=== PATIENT | female | born 1940 | race Caucasian/White ===

== ENCOUNTER → 2018-11-09 | Outpatient (CLI) | payer MEDICARE ==
[~2018-11-09] MED LIST: AC325T; ACHD5005 PO; ATN50T PO; ATR20T PO; CLCX200C; CTLP20T PO; GLUC750T8 PO; IBP800T PO; LEVO50TA63 PO; LVF500T; MULT1TAB63 PO
[2018-11-09 15:51] LABS: BILIRUBIN,URINE NEGATIVE (NEGATIVE); CLARITY,URINE CLEAR; COLOR,URINE PALE YELLOW; GLUCOSE, URINE (UA) NEGATIVE (NEGATIVE); KETONES,URINE NEGATIVE (NEGATIVE); NITRITE,URINE NEGATIVE (NEGATIVE); PROTEIN,URINE NEGATIVE (NEGATIVE); UROBILINOGEN,URINE 0.2 MG/DL (NORMAL)
[2018-11-09 15:52] LABS: LEUKOCYTE ESTERASE ,URINE NEGATIVE (NEGATIVE)
[2018-11-09 15:59] LABS: BACTERIA,URINE NEGATIVE /HPF; SQUAMOUS EPITHELIAL CELL,UR 0-2 /HPF; WBC,URINE 0-2 /HPF
== END ==
LOC: LAB FS 14:44
PROVIDERS: ATTEND Family Medicine
DX: R30.0 Dysuria (principal)
CPT/HCPCS: 81000

== ENCOUNTER → 2018-12-08 | Outpatient (CLI) | payer MEDICARE ==
[2018-12-08 11:34] LABS: HEMOGLOBIN 13.6 G/DL (11.5-16.0); WHITE BLOOD COUNT 5.6 10^3/uL (4.3-11.0)
[2018-12-08 11:35] LABS: MEAN PLATELET VOLUME 10.6 FL (7.4-10.4); RED CELL DISTRIBUTION WIDTH 13.2 % (10.0-14.5)
[2018-12-08 15:01] LABS: FREE T4 (FREE THYROXINE) 1.11 NG/DL (0.70-1.48)
== END ==
LOC: LAB FS 11:06
PROVIDERS: ATTEND Nurse Practitioner Family
DX: E03.9 Hypothyroidism, unspecified (principal); E78.2 Mixed hyperlipidemia; I10 Essential (primary) hypertension
CPT/HCPCS: 36415; 80061; 84439; 84443; 85027

== ENCOUNTER → 2019-02-13 | Outpatient (CLI) | payer MEDICARE ==
--- NOTE | 2019-02-13 18:35 | Diagnostic Imaging Report ---
INDICATION: Left ankle pain. AP, oblique, and lateral views of left ankle are obtained. FINDINGS: No fracture or acute bony abnormality is seen. There are chronic changes of the medial and lateral malleolus. There is some joint space narrowing especially medially. IMPRESSION: Chronic changes as above with no acute appearing abnormality of left ankle. Dictated by: Dictated on workstation # [id number]
== END ==
LOC: RAD 17:52
PROVIDERS: ATTEND Nurse Practitioner
DX: M25.872 Other specified joint disorders, left ankle and foot (principal); M25.572 Pain in left ankle and joints of left foot
CPT/HCPCS: 73610

== ENCOUNTER 2019-02-23 18:51 | Emergency (ER) | payer MEDICARE ==
[~2019-02-23] VITALS: Ht 152 cm; Wt 73.0 kg
[2019-02-23] MEDS ORDERED: meTOprolol TARTRATE 25 MG (LOPRESSOR) TABLET PO ONE (19:30)
--- NOTE | 2019-02-23 19:30 | ED Syncope ---
General Chief Complaint: Dizziness/Syncope Stated Complaint: FALL - HIT HEAD / DIZZY Nursing Triage Note: PT HAD AN EPISODE TODAY WHERE SHE GOT DIZZY AND FELL WHILE WORKING HITTING HER HEAD ON THE GROUND. RECENT UPPER RESPIRATORY ISSUES. CC OF NECK PAIN WHEN TURNING. Source of Information: Patient Exam Limitations: No Limitations History of Present Illness Date Seen by Provider: Feb 23, 2019 Time Seen by Provider: 18:55 Initial Comments Here with report of near syncopal episode. Apparently she was working in the garage and went back into the house. She had turned her head and felt dizzy and then fell sideways hitting her head on the cabinet. Denies loss of consciousness. She's had episodes similar to this in the past. Recently started on metoprolol for tachycardia but has not started that yet as she just got the medicine today. She was unsure if it was safe with her other medicines. Does complain of mild low neck pain but has no range of motion issues. Does have a small bump on the top of her head on the right. Recently has gone to the [place] on a trip and returned. She states that she's felt tired since but denies breathing problems. Does report some upper respiratory nasal congestion and left ear itching and she feels like she may have had a little bit of a cold or something. Denies nausea, vomiting, diarrhea, dysuria or weakness otherwise. Does have history of hypertension. Timing/Prior Episodes: Single Episode Today Symptoms Prior to Episode: Injury, Nausea, Other (dizziness) Precipitating Factors: Standing Loss of Consciousness: No Loss of Consciousness Current Symptoms: No Chest Pain, No Diaphoresis; Dizziness, Headache, Injury (mild head); No Nausea, No Weakness Allergies and Home Medications Allergies Coded Allergies: NKANo Known Allergies (Verified Allergy, Unknown, 09/22/06) Home Medications Atenolol 50 Mg Tablet, 1 TAB PO DAILY, (Reported) takes in evening Atorvastatin 20 Mg Tablet, 1 TAB PO DAILY, (Reported) takes hs Citalopram Hydrobromide 20 Mg Tablet, 1 TAB PO DAILY, (Reported) takes HS Glucosamine Hcl 750 Mg Tablet, 750 MG PO DAILY, (Reported) Hydrocodone Bit/Acetaminophen 1 Each Tablet, 1-2 EACH PO Q4H PRN, (Reported) Ibuprofen 800 Mg Tab, 800 MG PO TID PRN, (Reported) take with milk or meals Levothyroxine Sodium 50 Mcg Tablet, 1 TAB PO DAILY, (Reported) takes HS Multivitamins 1 Ea Tablet, 1 TAB PO DAILY, (Reported) takes HS Patient Home Medication List Home Medication List Reviewed: Yes Review of Systems Constitutional: see HPI; No chills, No fever EENTM: no symptoms reported Respiratory: no symptoms reported Cardiovascular: see HPI; No palpitations Gastrointestinal: No abdominal pain, No nausea, No vomiting Genitourinary: no symptoms reported Musculoskeletal: see HPI; No back pain Skin: no symptoms reported Psychiatric/Neurological: See HPI All Other Systems Reviewed Negative Unless Noted: Yes Past Fntfbuh-Ekkiel-Wxmcxb Hx Past Med/Social Hx: Reviewed Nursing Past Med/Soc Hx Patient Social History Alcohol Use: Denies Use Recreational Drug Use: No Smoking Status: Never a Smoker Recent Foreign Travel: No Contact w/Someone Who Travel: No Recent Infectious Disease Expo: No Immunizations Up To Date Date of Pneumonia Vaccine: Feb 08, 2011 Date of Influenza Vaccine: Feb 09, 2012 Past Medical History Surgeries: Yes Gallbladder, Hysterectomy, Orthopedic, Vascular Surgery Respiratory: No Cardiac: Yes High Cholesterol, Hypertension Neurological: No : No Reproductive Disorders: No (UTERINE POLYP REMOVED) Genitourinary: No Gastrointestinal: No Musculoskeletal: Yes Fractures Endocrine: Yes Hypothyroidsim Cancer: No Psychosocial: Yes Depression Family Medical History Reviewed Nursing Family Hx Cancer, Hypertension, Lung Disease Physical Exam Vital Signs Vital Signs - First Documented 02/23/19 19:04 Temp 37.3 Pulse 79 Resp 20 B/P (MAP) 203/110 (141) Pulse Ox 99 O2 Delivery Room Air Capillary Refill : Less Than 3 Seconds Height, Weight, BMI Height: '" Weight: lbs. oz. [id number]; 31.00 BMI Method: General Appearance: No Apparent Distress, WD/WN HEENT: PERRL/EOMI, TMs Normal, Pharynx Normal Neck: Non Tender, Supple Cardiovascular: Regular Rate, Rhythm, No Murmur Respiratory: Lungs Clear, Normal Breath Sounds Gastrointestinal: Non Tender, Soft Back: Normal Inspection, No CVA Tenderness, No Vertebral Tenderness Extremities: Normal Range of Motion, Non Tender, Pelvis Stable Neurologic/Psychiatric: Alert, Oriented x3, No Motor/Sensory Deficits, Normal Mood/Affect Cranial Nerves: Normal Hearing, Normal Speech, PERRL Coordination/Gait: Normal Gait Motor/Sensory: No Motor Deficit, No Sensory Deficit Skin: Normal Color, Warm/Dry Progress/Results/Core Measures Results/Orders Lab Results Laboratory Tests Test 02/23/19 19:20 Range/Units White Blood Count 5.5 4.3-11.0 10^3/uL Red Blood Count 4.21 L 4.35-5.85 10^6/uL Hemoglobin 12.5 11.5-16.0 G/DL Hematocrit 37 35-52 % Mean Corpuscular Volume 87 80-99 FL Mean Corpuscular Hemoglobin 30 25-34 PG Mean Corpuscular Hemoglobin Concent 34 32-36 G/DL Red Cell Distribution Width 13.5 10.0-14.5 % Platelet Count 224 130-400 10^3/uL Mean Platelet Volume 10.0 7.4-10.4 FL Neutrophils (%) (Auto) 69 42-75 % Lymphocytes (%) (Auto) 20 12-44 % Monocytes (%) (Auto) 7 0-12 % Eosinophils (%) (Auto) 3 0-10 % Basophils (%) (Auto) 1 0-10 % Neutrophils # (Auto) 3.8 1.8-7.8 X 10^3 Lymphocytes # (Auto) 1.1 1.0-4.0 X 10^3 Monocytes # (Auto) 0.4 0.0-1.0 X 10^3 Eosinophils # (Auto) 0.2 0.0-0.3 10^3/uL Basophils # (Auto) 0.0 0.0-0.1 10^3/uL Sodium Level 140 135-145 MMOL/L Potassium Level 3.8 3.6-5.0 MMOL/L Chloride Level 104 98-107 MMOL/L Carbon Dioxide Level 26 21-32 MMOL/L Anion Gap 10 5-14 MMOL/L Blood Urea Nitrogen 14 7-18 MG/DL Creatinine 0.79 0.60-1.30 MG/DL Estimat Glomerular Filtration Rate > 60 BUN/Creatinine Ratio 18 Glucose Level 99 70-105 MG/DL Calcium Level 9.4 8.5-10.1 MG/DL Corrected Calcium 9.1 8.5-10.1 MG/DL Magnesium Level 2.2 1.6-2.4 MG/DL Total Bilirubin 0.4 0.1-1.0 MG/DL Aspartate Amino Transf (AST/SGOT) 19 5-34 U/L Alanine Aminotransferase (ALT/SGPT) 19 0-55 U/L Alkaline Phosphatase 89 40-136 U/L Total Protein 6.9 6.4-8.2 GM/DL Albumin 4.4 3.2-4.5 GM/DL My Orders Orders - TERENCE KITCHEN MD Cbc With Automated Diff (02/23/19 19:16) Comprehensive Metabolic Panel (02/23/19 19:16) Magnesium (02/23/19 19:16) Ct Head/Cervical Spine Wo (02/23/19 19:16) Ekg Tracing (02/23/19 19:16) Metoprolol Tartrate (Ir) Tab (Lopressor (02/23/19 19:30) Medications Given in ED Current Medications Medications Dose Ordered Sig/Ana Lilia Route Start Time Stop Time Status Last Admin Dose Admin Metoprolol Tartrate 25 mg ONCE ONCE PO 02/23/19 19:30 02/23/19 19:31 DC 02/23/19 19:31 25 MG Vital Signs/I&O 02/23/19 19:04 Temp 37.3 Pulse 79 Resp 20 B/P (MAP) 203/110 (141) Pulse Ox 99 O2 Delivery Room Air Blood Pressure Mean: 141 Progress Progress Note : Progress Note Seen and evaluated. CT head and neck ordered. EKG and basic labs ordered. Monitor patient. 2024: Results reviewed with the patient and family. No acute findings currently. Discharged home with return precautions. Patient and family verbalize understanding instructions and agreement with plan. I will send a copy of the chart Dr. Knowles. Blood pressures come down nicely with metoprolol and she has no adverse effects and heart rate right at 70. Diagnostic Imaging Diagonstic Imaging: CT Plain Films/CT/US/NM/MRI: c-spine, head Comments [facility]. [place], [place] NAME: ANTOLINMOE MED REC#: [id number] PT STATUS: REG ER : 1940 PHYSICIAN: TERENCE KITCHEN MD ADMIT DATE: 02/23/19/ER Draft Date of Exam:02/23/19 CT HEAD/CERVICAL SPINE WO PROCEDURE: CT head and CT cervical spine without contrast. TECHNIQUE: Multiple contiguous axial images were obtained through the brain and cervical spine without the use of intravenous contrast. Sagittal and coronal reformations through the cervical spine were then performed. Auto Exposure Controls were utilized during the CT exam to meet ALARA standards for radiation dose reduction. INDICATION: Fell, head and neck pain There are no prior studies available for comparison. CT HEAD: There is no mass, shift of the midline or hemorrhage to suggest an acute intracranial abnormality. The ventricles are prominent. The size of the ventricles is most likely due to the underlying cortical atrophy. The degree of atrophy is consistent with patient's age. The bone windows show no evidence for a fracture or for a destructive lesion. There does seem to be soft tissue edema over the right frontal bone near the vertex of the skull. The orbits are symmetrical and within normal limits. The sinuses, where visualized, are clear. IMPRESSION: 1. There is no evidence for an acute intracranial abnormality. 2. If clinical concern regarding an acute abnormality persists, then MRI would be recommended for further study. CT cervical spine: The reconstructed parasagittal images show fairly severe degenerative disc and bone disease at C5-C6 and C6-C7. There is narrowing of the disc space at both of these levels and sclerosis of the opposing endplates of C5, C6 and C7. There does not appear to be a high-grade central stenosis at either of these levels, however. The remainder of the cervical spine is unremarkable for high-grade central stenosis as well. There is no fracture or acute bony abnormality appreciated. The lung apices are clear. The thyroid gland is partially obscured by streak artifact. There is no retropharyngeal edema. IMPRESSION: 1. There is no evidence for an acute bony abnormality of the cervical spine. 2. There is degenerative disc and bone disease at C5-C6 and C6-C7. Dictated on workstation # [id number] Dict: 02/23/191953 Trans: 02/23/192001 MONIKA [id number] Interpreted by: SARAH JUNE MD Electronically signed by: Departure Impression Primary Impression: Near syncope Additional Impressions: Minor head injury Qualified Codes: S09.90XA - Unspecified injury of head, initial encounter Labile hypertension Disposition: HOME, SELF-CARE Condition: Improved Departure-Patient Inst. Decision time for Depature: 20:27 Referrals: EVA KNOWLES DO (PCP/Family) Primary Care Physician Patient Instructions: High Blood Pressure (DC), Syncope (Fainting) (DC), Minor Head Injury (DC) Add. Discharge Instructions: All discharge instructions reviewed with patient and/or family. Voiced understanding. Take it easy over the next few days. Follow-up with your Dr. in a few days for recheck as needed. Return for worse pain, fever, vomiting, weakness, breathing problems or other concerns as needed. It is okay to take your metoprolol and I do recommend that. Copy Copies To 1: EVA KNOWLES TIMOTHY D MD Feb 23, 2019 19:30
[2019-02-23 19:34] LABS: BASOPHILS % (AUTO) 1 % (0-10); EOSINOPHILS # (AUTO) 0.2 10^3/uL (0.0-0.3); EOSINOPHILS % (AUTO) 3 % (0-10); HEMATOCRIT 37 % (35-52); HEMOGLOBIN 12.5 G/DL (11.5-16.0); LYMPHOCYTES # (AUTO) 1.1 X 10^3 (1.0-4.0); LYMPHOCYTES % (AUTO) 20 % (12-44); MEAN CORPUSCULAR HEMOGLOBIN 30 PG (25-34); MEAN CORPUSCULAR HGB CONC 34 G/DL (32-36); MEAN CORPUSCULAR VOLUME 87 FL (80-99); MONOCYTES # (AUTO) 0.4 X 10^3 (0.0-1.0); MONOCYTES % (AUTO) 7 % (0-12); NEUTROPHILS # (AUTO) 3.8 X 10^3 (1.8-7.8); NEUTROPHILS % (AUTO) 69 % (42-75); PLATELET COUNT 224 10^3/uL (130-400); RED CELL DISTRIBUTION WIDTH 13.5 % (10.0-14.5); WHITE BLOOD COUNT 5.5 10^3/uL (4.3-11.0)
[2019-02-23 19:55] LABS: ALANINE AMINOTRANSFERASE 19 U/L (0-55); ALBUMIN 4.4 GM/DL (3.2-4.5); ALKALINE PHOSPHATASE 89 U/L (40-136); BILIRUBIN,TOTAL 0.4 MG/DL (0.1-1.0); BUN/CREATININE RATIO 18; CALCIUM 9.4 MG/DL (8.5-10.1); CARBON DIOXIDE 26 MMOL/L (21-32); CHLORIDE 104 MMOL/L (98-107); CREATININE SERUM 0.79 MG/DL (0.60-1.30); GFR ESTIMATED > 60; GLUCOSE 99 MG/DL (70-105); MAGNESIUM 2.2 MG/DL (1.6-2.4); POTASSIUM 3.8 MMOL/L (3.6-5.0); SODIUM 140 MMOL/L (135-145); TOTAL PROTEIN 6.9 GM/DL (6.4-8.2)
--- NOTE | 2019-02-23 20:02 | Diagnostic Imaging Report ---
PROCEDURE: CT head and CT cervical spine without contrast. TECHNIQUE: Multiple contiguous axial images were obtained through the brain and cervical spine without the use of intravenous contrast. Sagittal and coronal reformations through the cervical spine were then performed. Auto Exposure Controls were utilized during the CT exam to meet ALARA standards for radiation dose reduction. INDICATION: Fell, head and neck pain There are no prior studies available for comparison. CT HEAD: There is no mass, shift of the midline or hemorrhage to suggest an acute intracranial abnormality. The ventricles are prominent. The size of the ventricles is most likely due to the underlying cortical atrophy. The degree of atrophy is consistent with patient's age. The bone windows show no evidence for a fracture or for a destructive lesion. There does seem to be soft tissue edema over the right frontal bone near the vertex of the skull. The orbits are symmetrical and within normal limits. The sinuses, where visualized, are clear. IMPRESSION: 1. There is no evidence for an acute intracranial abnormality. 2. If clinical concern regarding an acute abnormality persists, then MRI would be recommended for further study. CT cervical spine: The reconstructed parasagittal images show fairly severe degenerative disc and bone disease at C5-C6 and C6-C7. There is narrowing of the disc space at both of these levels and sclerosis of the opposing endplates of C5, C6 and C7. There does not appear to be a high-grade central stenosis at either of these levels, however. The remainder of the cervical spine is unremarkable for high-grade central stenosis as well. There is no fracture or acute bony abnormality appreciated. The lung apices are clear. The thyroid gland is partially obscured by streak artifact. There is no retropharyngeal edema. IMPRESSION: 1. There is no evidence for an acute bony abnormality of the cervical spine. 2. There is degenerative disc and bone disease at C5-C6 and C6-C7. Dictated by: Dictated on workstation # [id number]
[2019-02-23 20:40] VITALS: BP 155/91
== END 2019-02-23 20:40 | disposition home or self-care (01) ==
LOC: EDUNIT# 18:51 → ER 18:52
DX: S09.90XA Unspecified injury of head, initial encounter (principal); R55 Syncope and collapse; I10 Essential (primary) hypertension; E78.00 Pure hypercholesterolemia, unspecified; E03.9 Hypothyroidism, unspecified; F32.9 Major depressive disorder, single episode, unspecified; Z82.49 Family history of ischemic heart disease and other diseases of the circulatory system; Z90.710 Acquired absence of both cervix and uterus; W01.190A Fall on same level from slipping, tripping and stumbling with subsequent striking against furniture, initial encounter; Y92.019 Unspecified place in single-family (private) house as the place of occurrence of the external cause
CPT/HCPCS: 36415; 70450; 72125; 80053; 83735; 85025; 93005

== ENCOUNTER 2019-10-09 07:59 | Emergency (ER) | payer MEDICARE ==
[~2019-10-09] VITALS: Ht 154.9 cm; Wt 71.7 kg
--- OUTSIDE RECORDS SUMMARY | 2019-10-09 08:05 | XMS REPORT | Clinical Summary ---
Author Author [facility] Organization [facility] Address Unknown Phone Unavailable Care Team Providers Care Digital Photographer Name Role Phone Doctor, Miscellaneous Unavailable Unavailable Milla Knowles MD PCP Source Comments Some departments are not documenting in the electronic medical record. If you d o not see the information that you expected, contact Release of Information in [facility] [employer] Information Management department at [phone] for further assistan ce in locating additional records.[facility] Allergies Not on File Medications Not on file Active Problems Not on file Social History Date Tobacco Use Types Packs/Day Years Used Never Assessed Sex Assigned at Date Recorded Not on file Industry Job Start Date Occupation Not on file Not on file Not on file Travel End Travel History Travel Start No recent travel history available. Last Filed Vital Signs Not on file Plan of Treatment Health Maintenance Due Date Last Done Comments MEDICARE ANNUAL WELLNESS 1940 VISIT DTAP/TDAP VACCINES (1 - 09/12/1959 Tdap) HEPATITIS C SCREENING 09/12/1959 PHYSICAL (COMPREHENSIVE) 09/12/1959 EXAM SHINGLES RECOMBINANT 09/12/1991 VACCINE (1 of 2) OSTEOPOROSIS 2006 SCREENING/MONITORING PNEUMONIA (PPSV23) 2006 VACCINE (1 of 1 - PPSV23) INFLUENZA VACCINE 02/09/2020 Results Not on filefrom Last 3 Months Insurance Type Payer Benefit Subscriber ID Effective Phone Address Plan / Dates Group Medicare MEDICARE MEDICARE xxxxxxxxxxx 2006-P PART A AND resent B Medicare BCBS ANISHA BCBS xxxxxxxxxxxx 2013-P SUPPLEMENT resent ([place]) [place], [place] [phone] 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
--- OUTSIDE RECORDS SUMMARY | 2019-10-09 08:05 | XMS REPORT | Encounter Summary ---
Author Author [facility] Organization [facility] Address Unknown Phone Unavailable Care Team Providers Care Egg Breaking Machine Operator Name Role Phone Doctor, Miscellaneous Unavailable Unavailable Milla Knowles MD PCP Encounter Details Care Team Description Date Type Department Doctor, Miscellaneous Canceled (Procedural-Data Incorrect/Unav ailable) 04/15/2019 [facility] [address] [place] [id number] Social History Date Tobacco Use Types Packs/Day Years Used Never Assessed Sex Assigned at Date Recorded Not on file Industry Job Start Date Occupation Not on file Not on file Not on file Travel End Travel History Travel Start No recent travel history available. documented as of this encounter Plan of Treatment Not on filedocumented as of this encounter Visit Diagnoses Diagnosis Breast lump on right side at 10 o'clock position Lump or mass in breast documented in this encounter
--- OUTSIDE RECORDS SUMMARY | 2019-10-09 08:06 | XMS REPORT | Encounter Summary ---
Author Author [facility] Organization [facility] Address Unknown Phone Unavailable Care Team Providers Care Top Case Assembler Name Role Phone , Demetrio Unavailable Unavailable Milla Knowles MD PCP Reason for Visit * Radiology Services (Routine) Referred By Contact Referred To Contact Status Reason Specialty Diagnoses / Procedures Doctor, Demetrio [facility] [address] [facility] [address] [address] Canceled Radiology Diagnoses Breast lump on right side at 10 o'clock position P rocedures MAMMO DIAG RT Encounter Details Care Team Description Date Type Department Doctor, Milla Chaves MD [address] [place] [address] 04/15/2019 Hospital Imaging Encounter [address] [facility] [address] [address] Social History Date Tobacco Use Types Packs/Day Years Used Never Assessed Sex Assigned at Date Recorded Not on file Industry Job Start Date Occupation Not on file Not on file Not on file Travel End Travel History Travel Start No recent travel history available. documented as of this encounter Plan of Treatment Not on filedocumented as of this encounter Procedures Comments Procedure Name Priority Date/Time Associated Diag nosis MAMMO DIAGNOSTIC CLARENCE/KORY Routine 04/15/[address] lump on right side 10:54 AM CMM OPERATOR at 10 o'clock position documented in this encounter Results * MAMMO DIAGNOSTIC CLARENCE/KORY (04/15/2019 10:54 AM CMM OPERATOR) Specimen Impressions Performed At ASSESSMENT: BIRAD 1-Negative [facility] RESULTS RECOMMENDATION: Routine screening mammogram in 1 year. Narrative Performed At Last mammogram was performed 1 year and 1 month ago. [facility] RESULTS Reason for exam: clinical finding. Indicated problem(s): right breast palp able abnormality. [id number] MAMMO DIAGNOSTIC CLARENCE/KORY: TINA 2018 - 2D/3D Procedure 3D Routine views. 2D Routine views. Prior study comparison: March 18, bilateral [id number] DIGITAL MAMMO SCREEN BILAT/KORY/CAD per formed at [facility]. December 29, 2016, bilateral [id number] DIGITAL MAMMO SCREEN BILAT/KORY/CAD performed a t [facility]. There are scattered areas of fibrogland ular density. History: 78-year old female presents for evaluat ion of an abnormality palpated by the patient's ordering prov ider. 2-D and 3-D images were obtained of the breasts bilaterally. The patient was unable to palpate the abnor mality so a skin marker was not placed. There are no suspicious masses, calcifi cations or architectural distortion present to suggest malignanc y within either breast. No significant change when compared wit h prior exams. Given the fatty nature the breast, ultrasound was not indicated and was not performed. Approved by Bogdan Ricardo M.D. on 019 11:06 AM By my electronic signature, I attest th at I have personally reviewed the images for this examinatio n and formulated the interpretations and opinions expressed in this report Finalized by Weston Rolon M.D. on 04/15/2019 11:14 AM. Dictated by Bogdan Ricardo M.D. on 04/15/2019 10:57 AM. Electronically signed and approved by: Weston Rolon M.D. [id number] Procedure Note Interface, Radiant Results - 04/15/2019 11:15 AM CMM OPERATOR Last mammogram was performed 1 year and 1 month ago. Reason for exam: clinical finding. Indicated problem(s): right breast palpable abnormality. [id number] MAMMO DIAGNOSTIC CLARENCE/KORY: APRIL 15, 2019 - 2D/3D Procedure 3D Routine views. 2D Routine views. Prior study comparison: March 18, 2018, bilateral [id number] DIGITAL MAMMO SCREEN BILAT/KORY/CAD performed at [facility]. December 29, 2016, bilateral [id number] DIGITAL MAMMO SCREEN BILAT/KORY/CAD performed at [facility]. There are scattered areas of fibroglandular density. History: 78-year old female presents for evaluati on of an abnormality palpated by the patient's ordering provider. 2-D and 3-D images were obtained of the breasts bilaterally. The patient was unable to palpate the abnormality so a skin marker was not placed. There are no suspicious masses, calcifications or architectural distortion present to suggest malignancy within either breast. No significant change when compared with prior exams. Given the fatty nature the breast, ultrasound was not indicated and was not performed. Approved by Bogdan Ricardo M.D. on 04/15/2019 11:06 AM By my electronic signature, I attest that I have personally reviewed the images for this examination and formulated the interpretations and opinions expressed in this report Finalized by Weston Rolon M.D. on 04/15/2019 11:14 AM. Dictated by Bogdan Ricardo M.D. on 04/15/2019 10:57 AM. Electronically signed and approved by: Weston Rolon M.D. [id number] IMPRESSION ASSESSMENT: BIRAD 1-Negative RECOMMENDATION: Routine screening mammogram in 1 year. Performing Organization Address City/State/Zipcode Ph one Number [facility] RESULTS documented in this encounter Visit Diagnoses Diagnosis Breast lump on right side at 10 o'clock position Lump or mass in breast documented in this encounter
--- OUTSIDE RECORDS SUMMARY | 2019-10-09 08:06 | XMS REPORT | Continuity of Care Document ---
Author Organization Unknown Address Unknown Phone Unavailable Allergies Active Description Code Type Severity Reaction Onset Reported/Identified Relationship to Patient Clinical Status Yes NKANo Known Allergies NKA Miscellaneous Allergy Unknown N/A 09/22/2006 Medications There is no data. Problems Date Dx Coded Attending Type Code Diagnosis Diagnosed By 05/09/2012 Ot 244.9 05/09/2012 Ot 272.0 05/09/2012 Ot 401.9 05/09/2012 Ot 807.01 05/09/2012 Ot E000.8 05/09/2012 Ot E849.0 05/09/2012 Ot E885.9 08/09/2014 GURMEETNDER DO, EVA S Ot 241.0 09/06/2014 GURMEETNDISAAC MEDINA, EVA S Ot 241.0 09/29/2014 MAIA MEDINA, EVA S Ot 241.0 06/28/2015 GURMEETNDISAAC DO, EVA S Ot 241.0 07/19/2015 GURMEETNDISAAC DO, EVA S Ot R05 08/13/2015 MAIA MEDINA, EVA S Ot R05 11/01/2018 NIKOLAY , EVA S Ot 241.0 NONTOX UNINODULAR GOITER 11/01/2018 MAIA MEDINA, EVA S Ot R05 COUGH 11/02/2018 ISHAN FOSTER MD Ot I10 ESSENTIAL (PRIMARY) HYPERTENSION 11/12/2018 MAIA MEDINA, EVA S Ot R30.0 DYSURIA 11/18/2018 ISHAN FOSTER MD Ot I10 ESSENTIAL (PRIMARY) HYPERTENSION 12/02/2018 FABIOLA CARVALHO DOQUELINE S Ot R30.0 DYSURIA 12/10/2018 ADAMS ARIAS APRN Ot E03.9 HYPOTHYROIDISM, UNSPECIFIED 12/10/2018 ADAMS ARIAS APRN Ot E78.2 MIXED HYPERLIPIDEMIA 12/10/2018 ADAMS ARIAS EXPORT FREIGHT SPECIALIST Ot I10 ESSENTIAL (PRIMARY) HYPERTENSION 12/28/2018 ADAMS ARIAS EXPORT FREIGHT SPECIALIST Ot E03.9 HYPOTHYROIDISM, UNSPECIFIED 12/28/2018 ADAMS ARIAS EXPORT FREIGHT SPECIALIST Ot E78.2 MIXED HYPERLIPIDEMIA 12/28/2018 ADAMS ARIAS EXPORT FREIGHT SPECIALIST Ot I10 ESSENTIAL (PRIMARY) HYPERTENSION 02/18/2019 JOE QUISPEP Ot M25.572 PAIN IN LEFT ANKLE AND JOINTS OF LEFT FO 02/18/2019 JOE QUISPEP Ot M25.872 OTHER SPECIFIED JOINT DISORDERS, LEFT AN 02/23/2019 TERENCE KITCHEN MD Ot E03.9 HYPOTHYROIDISM, UNSPECIFIED 02/23/2019 TERENCE KITCHEN MD Ot E78.00 PURE HYPERCHOLESTEROLEMIA, UNSPECIFIED 02/23/2019 TERENCE KITCHEN MD Ot F32.9 MAJOR DEPRESSIVE DISORDER, SINGLE EPISOD 02/23/2019 TERENCE KITCHEN MD Ot I10 ESSENTIAL (PRIMARY) HYPERTENSION 02/23/2019 TERENCE KITCHEN MD Ot R55 SYNCOPE AND COLLAPSE 02/23/2019 TERENCE KITCHEN MD Ot S09.90XA UNSPECIFIED INJURY OF HEAD, INITIAL ENCO 02/23/2019 TERENCE KITCHEN MD Ot W01.190A FALL SAME LEV FROM SLIP/TRIP W STRIKE AG 02/23/2019 TERENCE KITCHEN MD Ot Y92.[address] IN SINGLE-FAMILY (PRIVATE) HO 02/23/2019 TERENCE KITCHEN MD Ot Z82.49 FAMILY HX OF ISCHEM HEART DIS AND OTH DI 02/23/2019 TERENCE KITCHEN MD Ot Z90.710 ACQUIRED ABSENCE OF BOTH CERVIX AND UTER 02/28/2019 TERENCE KITCHEN MD Ot E03.9 HYPOTHYROIDISM, UNSPECIFIED 02/28/2019 TERENCE KITCHEN MD Ot E78.00 PURE HYPERCHOLESTEROLEMIA, UNSPECIFIED 02/28/2019 TERENCE KITCHEN MD Ot F32.9 MAJOR DEPRESSIVE DISORDER, SINGLE EPISOD 02/28/2019 TERENCE KITCHEN MD Ot I10 ESSENTIAL (PRIMARY) HYPERTENSION 02/28/2019 TERENCE KITCHEN MD Ot R55 SYNCOPE AND COLLAPSE 02/28/2019 TERENCE KITCHEN MD Ot S09.90XA UNSPECIFIED INJURY OF HEAD, INITIAL ENCO 02/28/2019 TERENCE KITCHEN MD Ot W01.190A FALL SAME LEV FROM SLIP/TRIP W STRIKE AG 02/28/2019 TERENCE KITCHEN MD Ot Y92.[address] IN SINGLE-FAMILY (PRIVATE) HO 02/28/2019 TERENCE KITCHEN MD, Ot Z82.49 FAMILY HX OF ISCHEM HEART DIS AND OTH DI 02/28/2019 TERENCE KITCHEN MD, Ot Z90.710 ACQUIRED ABSENCE OF BOTH CERVIX AND UTER 03/08/2019 BRITTANEY, JOE MURPHY Ot M25.572 PAIN IN LEFT ANKLE AND JOINTS OF LEFT FO 03/08/2019 BRITTANEY, JOE MURPHY Ot M25.872 OTHER SPECIFIED JOINT DISORDERS, LEFT AN 03/14/2019 BRITTANEY, JOE DRIER TENDER Ot M25.572 PAIN IN LEFT ANKLE AND JOINTS OF LEFT FO 03/14/2019 BRITTANEY, JOE MURPHY Ot M25.872 OTHER SPECIFIED JOINT DISORDERS, LEFT AN Procedures There is no data. Results Test Result Range Serum or plasma renal function panel (Na , K, Cl, CO2, BUN, Cr, glucose,Ca, phos, alb) - 10/29/18 14:10 Serum or plasma sodium measurement (moles/volume) 140 mmol/L 135-145 Serum or plasma potassium measurement (moles/volume) 4.4 mmol/L 3.6-5.0 Serum or plasma chloride measurement (moles/volume) 102 mmol/L 98-107 Carbon dioxide 28 mmol/L 21-32 Serum or plasma anion gap determination (moles/volume) 10 mmol/L 5-14 Serum or plasma urea nitrogen measurement (mass/volume ) 16 mg/dL 7-18 Serum or plasma creatinine measurement (mass/volume) 0.79 mg/dL 0.60-1.30 Serum or plasma urea nitrogen/creatinine mass ratio 20 NRG Serum or plasma creatinine measurement w ith calculation of estimated glomerular filtration rate > NRG Serum or plasma glucose measurement (mass/volume) 92 mg/dL 70-105 Serum or plasma calcium measurement (mass/volume) 9.8 mg/dL 8.5-10.1 Serum or plasma albumin measurement (mass/volume) 4.6 g/dL 3.2-4.5 Serum or plasma phosphate measurement (mass/volume) 4.8 mg/dL 2.3-4.7 Magnesium - 10/29/18 14:10 Magnesium 2.3 mg/dL 1.8-2.4 Complete urinalysis with reflex to cultu re - 11/09/18 14:45 Urine color determination PALE YELLOW N RG Urine clarity determination CLEAR NR G Urine pH measurement by test strip 6.0 5-9 Specific gravity of urine by test strip <= 1.016-1.022 Urine protein assay by test strip, semi-quantitative NEGATIVE NEGATIVE Urine glucose detection by automated test strip NE GATIVE NEGATIVE Erythrocytes detection in urine sediment by light micr oscopy NEGATIVE NEGATIVE Urine ketones detection by automated test strip NE GATIVE NEGATIVE Urine nitrite detection by test strip NEGATIVE NEGATIVE Urine total bilirubin detection by test strip NEGA TIVE NEGATIVE Urine urobilinogen measurement by automated test strip (mass/volume) 0.2 mg/dL NORMAL Urine leukocyte esterase detection by dipstick NEG ATIVE NEGATIVE Automated urine sediment erythrocyte cou nt by microscopy (number/high power field) NONE NRG Automated urine sediment leukocyte count by microscopy (number/high power field) [HPF] NRG Bacteria detection in urine sediment by light microsco py NEGATIVE NRG Squamous epithelial cells detection in u rine sediment by light microscopy 0-2 NRG Crystals detection in urine sediment by light microsco py NONE NRG Casts detection in urine sediment by light microscopy NONE NRG Mucus detection in urine sediment by light microscopy NEGATIVE NRG Complete urinalysis with reflex to culture NO NRG Automated blood complete blood count (he mogram) panel - 12/08/18 11:13 Blood leukocytes automated count (number/volume) 5.6 10*3/uL 4.3-11.0 Blood erythrocytes automated count (number/volume) 4.56 10*6/uL 4.35-5.85 Venous blood hemoglobin measurement (mass/volume) 13.6 g/dL 11.5-16.0 Blood hematocrit (volume fraction) 40 % 35-52 Automated erythrocyte mean corpuscular volume 89 [ foz_us] 80-99 Automated erythrocyte mean corpuscular h emoglobin (mass per erythrocyte) 30 pg 25-34 Automated erythrocyte mean corpuscular h emoglobin concentration measurement (mass/volume) 34 g/dL 32-36 Automated erythrocyte distribution width ratio 13. 2 % 10.0- 14.5 Automated blood platelet count (count/volume) 250 10*3/uL 130-400 Automated blood platelet mean volume measurement 10.6 [foz_us] 7.4-10.4 Lipid 1996 panel - 12/08/18 11:13 Serum or plasma triglyceride measurement (mass/volume) 112 mg/dL <150 Serum or plasma cholesterol measurement (mass/volume) 211 mg/dL < 200 Serum or plasma cholesterol in HDL measurement (mass/v olume) 84 mg/dL 40-60 Cholesterol in LDL [mass/volume] in serum or plasma by direct assay 111 mg/dL 1-129 Serum or plasma cholesterol in VLDL measurement (mass/ volume) 22 mg/dL 5-40 THYROID STIMULATING HORMONE - 12/08/18 1 1:13 THYROID STIMULATING HORMONE 0.28 u[iU]/mL 0.35-4.94 Serum or plasma thyroxine (T4) free katty urement (mass/volume) - 12/08/18 11:13 Serum or plasma thyroxine (T4) free measurement (mass/ volume) 1.11 ng/dL 0.70-1.48 Complete blood count (CBC) with automate d white blood cell (WBC) differential - 02/23/19 19:20 Blood leukocytes automated count (number/volume) 5.5 10*3/uL 4.3-11.0 Blood erythrocytes automated count (number/volume) 4.21 10*6/uL 4.35-5.85 Venous blood hemoglobin measurement (mass/volume) 12.5 g/dL 11.5-16.0 Blood hematocrit (volume fraction) 37 % 35-52 Automated erythrocyte mean corpuscular volume 87 [ foz_us] 80-99 Automated erythrocyte mean corpuscular h emoglobin (mass per erythrocyte) 30 pg 25-34 Automated erythrocyte mean corpuscular h emoglobin concentration measurement (mass/volume) 34 g/dL 32-36 Automated erythrocyte distribution width ratio 13. 5 % 10.0- 14.5 Automated blood platelet count (count/volume) 224 10*3/uL 130-400 Automated blood platelet mean volume measurement 10.0 [foz_us] 7.4-10.4 Automated blood neutrophils/100 leukocytes 69 % 42-75 Automated blood lymphocytes/100 leukocytes 20 % 12-44 Blood monocytes/100 leukocytes 7 % 0-12 Automated blood eosinophils/100 leukocytes 3 % 0-10 Automated blood basophils/100 leukocytes 1 % 0-10 Blood neutrophils automated count (number/volume) 3.8 10*3 1.8-7.8 Blood lymphocytes automated count (number/volume) 1.1 10*3 1.0-4.0 Blood monocytes automated count (number/volume) 0. 4 10*3 0.0-1.0 Automated eosinophil count 0.2 10*3/uL 0 .0-0.3 Automated blood basophil count (count/volume) 0.0 10*3/uL 0.0-0.1 Comprehensive metabolic panel - 02/23/19 19:20 Serum or plasma sodium measurement (moles/volume) 140 mmol/L 135-145 Serum or plasma potassium measurement (moles/volume) 3.8 mmol/L 3.6-5.0 Serum or plasma chloride measurement (moles/volume) 104 mmol/L 98-107 Carbon dioxide 26 mmol/L 21-32 Serum or plasma anion gap determination (moles/volume) 10 mmol/L 5-14 Serum or plasma urea nitrogen measurement (mass/volume ) 14 mg/dL 7-18 Serum or plasma creatinine measurement (mass/volume) 0.79 mg/dL 0.60-1.30 Serum or plasma urea nitrogen/creatinine mass ratio 18 NRG Serum or plasma creatinine measurement w ith calculation of estimated glomerular filtration rate > NRG Serum or plasma glucose measurement (mass/volume) 99 mg/dL 70-105 Serum or plasma calcium measurement (mass/volume) 9.4 mg/dL 8.5-10.1 Serum or plasma total bilirubin measurement (mass/volu me) 0.4 mg/dL 0.1-1.0 Serum or plasma alkaline phosphatase chio surement (enzymatic activity/volume) 89 U/L 40-136 Serum or plasma aspartate aminotransfera se measurement (enzymatic activity/volume) 19 U/L 5-34 Serum or plasma alanine aminotransferase measurement (enzymatic activity/volume) 19 U/L 0-55 Serum or plasma protein measurement (mass/volume) 6.9 g/dL 6.4-8.2 Serum or plasma albumin measurement (mass/volume) 4.4 g/dL 3.2-4.5 CALCIUM CORRECTED 9.1 mg/dL 8.5-10.1 Magnesium - 02/23/19 19:20 Magnesium 2.2 mg/dL 1.6-2.4 Encounters ACCT No. Visit Date/Time Discharge Status Pt. Type Provider Facility Loc./Unit Complaint [id number] 02/23/2019 18:52:00 20:40:00 DIS Emergency FIDELINA DELANEY, TERENCE Sanchez [facility] ER FALL - HIT HEAD / DIZZY [id number] 02/13/2019 17:52:00 23:59:59 CLS Outpatient BRITTANEY JOE YOUP [facility] RAD L ANKLE PAIN [id number] 12/08/2018 11:06:00 23:59:59 CLS Outpatient ADAMS ARIAS EXPORT FREIGHT SPECIALIST [facility] LAB FS E03.9 E78.2 I10 [id number] 11/09/2018 14:44:00 23:59:59 CLS Outpatient EVA CARVALHO DO S [facility] LAB FS DYSURIA [id number] 10/29/2018 13:47:00 23:59:59 CLS Outpatient KRISTIN DELANEY, ISHAN Strauss [facility] LAB FS I10 [id number] 06/28/2015 10:06:00 016 23:59:59 CLS Outpatient EVA CARVALHO DO S [facility] RAD COUGH,SURGERY [id number] 08/07/2014 10:45:00 015 23:59:59 CLS Outpatient EVA CARVALHO DO S [facility] RAD RIGHT THYROID N ODULE [id number] 05/08/2012 21:00:00 Document Registration
[2019-10-09] MEDS ORDERED: LOSA50TA63 (08:21)
[2019-10-09] MEDS ORDERED: SIMV40TA25 (08:21)
[2019-10-09] MEDS ORDERED: AMLO5TAB9 (08:21)
[2019-10-09 08:34] LABS: BASOPHILS # (AUTO) 0.1 10^3/uL (0.0-0.1); BASOPHILS % (AUTO) 1 % (0-10); EOSINOPHILS # (AUTO) 0.2 10^3/uL (0.0-0.3); EOSINOPHILS % (AUTO) 4 % (0-10); HEMATOCRIT 40 % (35-52); HEMOGLOBIN 13.6 G/DL (11.5-16.0); LYMPHOCYTES % (AUTO) 19 % (12-44); MEAN CORPUSCULAR HEMOGLOBIN 30 PG (25-34); MEAN CORPUSCULAR HGB CONC 34 G/DL (32-36); MEAN CORPUSCULAR VOLUME 87 FL (80-99); MEAN PLATELET VOLUME 10.3 FL (7.4-10.4); MONOCYTES # (AUTO) 0.4 X 10^3 (0.0-1.0); MONOCYTES % (AUTO) 8 % (0-12); NEUTROPHILS # (AUTO) 3.4 X 10^3 (1.8-7.8); NEUTROPHILS % (AUTO) 68 % (42-75); PLATELET COUNT 238 10^3/uL (130-400); RED CELL DISTRIBUTION WIDTH 13.7 % (10.0-14.5); WHITE BLOOD COUNT 4.9 10^3/uL (4.3-11.0)
[2019-10-09 08:37] LABS: ALBUMIN 4.4 GM/DL (3.2-4.5); CHLORIDE 104 MMOL/L (98-107); POTASSIUM 3.8 MMOL/L (3.6-5.0); SODIUM 141 MMOL/L (135-145)
[2019-10-09 08:38] LABS: CALCIUM 9.7 MG/DL (8.5-10.1)
[2019-10-09 08:39] LABS: GLUCOSE 93 MG/DL (70-105)
[2019-10-09 08:40] LABS: CARBON DIOXIDE 27 MMOL/L (21-32)
[2019-10-09 08:41] LABS: BILIRUBIN,TOTAL 0.5 MG/DL (0.1-1.0)
[2019-10-09 08:42] LABS: ALKALINE PHOSPHATASE 75 U/L (40-136)
[2019-10-09 08:43] LABS: CREATININE SERUM 0.75 MG/DL (0.60-1.30); GFR ESTIMATED > 60
[2019-10-09 08:44] LABS: BUN/CREATININE RATIO 19
[2019-10-09 08:46] LABS: ALANINE AMINOTRANSFERASE 20 U/L (0-55); MAGNESIUM 2.2 MG/DL (1.6-2.4)
[2019-10-09 09:08] LABS: FREE T4 (FREE THYROXINE) 1.06 NG/DL (0.70-1.48)
--- NOTE | 2019-10-09 09:34 | ED Cardiac General ---
History of Present Illness General Chief Complaint: Cardiac/General Problems Stated Complaint: HIGH BP 185/98 Nursing Triage Note: pt amb to rm 5 with complaint of high blood pressure over the last 3 days. states highest BP has been was 190s/109s. pt takes bp medication at home. Source: patient Exam Limitations: no limitations History of Present Illness Date Seen by Provider: October 09, 2019 Time Seen by Provider: 06:35 Initial Comments Patient presents to the emergency room with concerns about exacerbation of hypertension over the past few days. She reports systolic pressures as high as 190s. She denies any other symptoms such as headache, nausea, blurry vision, chest pain, or shortness of breath. She has taken her blood pressure medications this morning. She denies any use of stimulants, excessive salt, decongestants, etc. Allergies and Home Medications Allergies Coded Allergies: Marcio Known Allergies (Verified Allergy, Unknown, 09/22/06) Home Medications Atenolol 50 Mg Tablet, 1 TAB PO DAILY, (Reported) takes in evening Atorvastatin 20 Mg Tablet, 1 TAB PO DAILY, (Reported) takes hs Citalopram Hydrobromide 20 Mg Tablet, 1 TAB PO DAILY, (Reported) takes HS Glucosamine Hcl 750 Mg Tablet, 750 MG PO DAILY, (Reported) Hydrocodone Bit/Acetaminophen 1 Each Tablet, 1-2 EACH PO Q4H PRN, (Reported) Ibuprofen 800 Mg Tab, 800 MG PO TID PRN, (Reported) take with milk or meals Levothyroxine Sodium 50 Mcg Tablet, 1 TAB PO DAILY, (Reported) takes HS Multivitamins 1 Ea Tablet, 1 TAB PO DAILY, (Reported) takes HS Patient Home Medication List Home Medication List Reviewed: Yes Review of Systems Review of Systems Constitutional: no symptoms reported EENTM: No Symptoms Reported Respiratory: No Symptoms Reported Cardiovascular: See HPI Gastrointestinal: No Symptoms Reported Genitourinary: No Symptoms Reported Musculoskeletal: no symptoms reported Skin: no symptoms reported Psychiatric/Neurological: No Symptoms Reported Endocrine: No Symptoms Reported Hematologic/Lymphatic: No Symptoms Reported Past Yhgfxhe-Bmjllk-Rknqux Hx Past Med/Social Hx: Reviewed Nursing Past Med/Soc Hx Patient Social History Alcohol Use: Occasionally Uses Number of Drinks Today: FF Alcohol Beverage of Choice: Wine, Vodka Recreational Drug Use: No Smoking Status: Former Smoker Recent Foreign Travel: No Contact w/Someone Who Travel: No Recent Infectious Disease Expo: No Recent Hopitalizations: No Immunizations Up To Date Tetanus Booster (TDap): More than 5yrs PED Vaccines UTD: Yes Date of Pneumonia Vaccine: Feb 08, 2018 Date of Influenza Vaccine: Feb 09, 2012 Seasonal Allergies Seasonal Allergies: Yes Past Medical History Surgeries: Yes Gallbladder, Hysterectomy, Orthopedic, Vascular Surgery Respiratory: No Cardiac: Yes High Cholesterol, Hypertension Neurological: No : No Reproductive Disorders: No (UTERINE POLYP REMOVED) Genitourinary: No Gastrointestinal: No Musculoskeletal: Yes Fractures Endocrine: Yes Hypothyroidsim HEENT: No Cancer: No Psychosocial: Yes Depression Integumentary: No Blood Disorders: No Family Medical History Cancer, Hypertension, Lung Disease Physical Exam Vital Signs Vital Signs - First Documented 10/09/19 08:00 Pulse 70 Resp 27 B/P (MAP) 173/96 (121) Pulse Ox 98 O2 Delivery Room Air Capillary Refill : Less Than 3 Seconds Height, Weight, BMI Height: '" Weight: lbs. oz. 90.478756nl; 29.00 BMI Method: General Appearance: No Apparent Distress, WD/WN HEENT: PERRL/EOMI, Normal ENT Inspection Neck: Normal Inspection Respiratory: Lungs Clear, Normal Breath Sounds, No Accessory Muscle Use, No Respiratory Distress Cardiovascular: Regular Rate, Rhythm, No Edema, No Murmur, Normal Peripheral Pulses Extremity: Normal Inspection, No Pedal Edema Neurologic/Psychiatric: Alert, Oriented x3, No Motor/Sensory Deficits, Normal Mood/Affect, machine cloth examiner II-XII Norm as Tested Skin: Normal Color, Warm/Dry Progress/Results/Core Measures Results/Orders Lab Results Laboratory Tests Test 10/09/19 08:15 10/09/19 08:30 Range/Units White Blood Count 4.9 4.3-11.0 10^3/uL Red Blood Count 4.61 4.35-5.85 10^6/uL Hemoglobin 13.6 11.5-16.0 G/DL Hematocrit 40 35-52 % Mean Corpuscular Volume 87 80-99 FL Mean Corpuscular Hemoglobin 30 25-34 PG Mean Corpuscular Hemoglobin Concent 34 32-36 G/DL Red Cell Distribution Width 13.7 10.0-14.5 % Platelet Count 238 130-400 10^3/uL Mean Platelet Volume 10.3 7.4-10.4 FL Neutrophils (%) (Auto) 68 42-75 % Lymphocytes (%) (Auto) 19 12-44 % Monocytes (%) (Auto) 8 0-12 % Eosinophils (%) (Auto) 4 0-10 % Basophils (%) (Auto) 1 0-10 % Neutrophils # (Auto) 3.4 1.8-7.8 X 10^3 Lymphocytes # (Auto) 1.0 1.0-4.0 X 10^3 Monocytes # (Auto) 0.4 0.0-1.0 X 10^3 Eosinophils # (Auto) 0.2 0.0-0.3 10^3/uL Basophils # (Auto) 0.1 0.0-0.1 10^3/uL Sodium Level 141 135-145 MMOL/L Potassium Level 3.8 3.6-5.0 MMOL/L Chloride Level 104 98-107 MMOL/L Carbon Dioxide Level 27 21-32 MMOL/L Anion Gap 10 5-14 MMOL/L Blood Urea Nitrogen 14 7-18 MG/DL Creatinine 0.75 0.60-1.30 MG/DL Estimat Glomerular Filtration Rate > 60 BUN/Creatinine Ratio 19 Glucose Level 93 70-105 MG/DL Calcium Level 9.7 8.5-10.1 MG/DL Corrected Calcium 9.4 8.5-10.1 MG/DL Magnesium Level 2.2 1.6-2.4 MG/DL Total Bilirubin 0.5 0.1-1.0 MG/DL Aspartate Amino Transf (AST/SGOT) 18 5-34 U/L Alanine Aminotransferase (ALT/SGPT) 20 0-55 U/L Alkaline Phosphatase 75 40-136 U/L Total Protein 7.0 6.4-8.2 GM/DL Albumin 4.4 3.2-4.5 GM/DL Thyroid Stimulating Hormone (TSH) 0.28 L 0.35-4.94 UIU/ML Free Thyroxine 1.06 0.70-1.48 NG/DL B-Type Natriuretic Peptide 69.3 <100.0 PG/ML My Orders Orders - KWESI FARRELL MD Ed Iv/Invasive Line Start (10/09/19 08:22) Ekg Tracing (10/09/19 08:22) Monitor-Rhythm Ecg Trace Only (10/09/19 08:22) Cbc With Automated Diff (10/09/19 08:22) Comprehensive Metabolic Panel (10/09/19 08:22) Magnesium (10/09/19 08:22) Thyroid Stimulating Hormone (10/09/19 08:22) Free T4 (Free Thyroxine) (10/09/19 08:22) BNP (10/09/19 08:36) Vital Signs/I&O 10/09/19 10/09/19 08:00 09:40 Pulse 70 64 Resp 27 15 B/P (MAP) 173/96 (121) 155/96 (121) Pulse Ox 98 97 O2 Delivery Room Air Room Air Blood Pressure Mean: 121 Progress Progress Note : Progress Note Blood pressure did gradually trend down. Workup was unremarkable. We discussed avoiding consumption things increased blood pressure. We discussed adjusting losartan to a higher dose if she has sustained hypertension exacerbation. Initial ECG Impression Date: October 09, 2019 Initial ECG Impression Time: 08:06 Initial ECG Rate: 68 Initial ECG Rhythm: Normal Sinus Initial ECG Intervals: Normal Initial ECG Impression: Normal Comment Normal sinus rhythm with no ST elevation or depression. No abnormal intervals or axis deviation. Departure Impression Primary Impression: Hypertension Qualified Codes: I10 - Essential (primary) hypertension Disposition: 01 HOME, SELF-CARE Condition: Improved Departure-Patient Inst. Decision time for Depature: 09:32 Referrals: EVA CARVALHO DO (PCP/Family) Primary Care Physician Patient Instructions: High Blood Pressure in Adults Add. Discharge Instructions: Avoid things that could cause your blood pressure to go up including excessive salt and stimulants such as caffeine, diet pills, decongestants, etc. Drink plenty of water. If your blood pressure remains persistently elevated (top number greater than 140 and bottom number greater than 90) you may increase your losartan to a maxim um of 50 mg twice daily. If you increase your losartan and experience low blood pressures, lightheadedness, or dizziness, please return to the prior dose. Follow-up with your primary care provider and/or kiln pusher later this week. Log your blood pressures twice daily for your physicians to review. All discharge instructions reviewed with patient and/or family. Voiced understmelissa ovalle. KWESI FARRELL MD October 09, 2019 09:34
[2019-10-09 09:40] VITALS: BP 155/96
== END 2019-10-09 09:40 | disposition home or self-care (01) ==
LOC: EDUNIT# 07:59 → ER 08:00
DX: I10 Essential (primary) hypertension (principal); E78.00 Pure hypercholesterolemia, unspecified; E03.9 Hypothyroidism, unspecified; F32.9 Major depressive disorder, single episode, unspecified; Z87.891 Personal history of nicotine dependence
CPT/HCPCS: 36415; 80053; 83735; 83880; 84439; 84443; 85025; 93005; 93041

== ENCOUNTER 2019-10-15 14:55 | Emergency (ER) | payer MEDICARE ==
[~2019-10-15] VITALS: Ht 157 cm; Wt 68.0 kg
[~2019-10-15 14:55] MED LIST changes: +AMLO5TAB9; +LOSA50TA63; +SIMV40TA25
--- NOTE | 2019-10-15 16:19 | ED Cardiac General ---
History of Present Illness General Chief Complaint: Cardiac/General Problems Stated Complaint: HIGH BP 194/90 Nursing Triage Note: Pt c/o high blood pressure and malaise today. Source: patient Exam Limitations: no limitations History of Present Illness Date Seen by Provider: Oct 15, 2019 Time Seen by Provider: 16:01 Initial Comments Here with concerns of elevated blood pressure. She has known hypertension that is sometimes difficult to manage. She did take an extra amlodipine this morning and that seems to have helped. Blood pressure normal now. Denies chest pain or breathing problems. She does admit to being under increased stress recently and has recently initiated Cymbalta with her doctor. She has a doctor's appointment with her that she thinks is on 10/24/19. She just had an appointment last week. She initiated the Cymbalta on 10/10/19. 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 ASA po SHEET METAL ASSEMBLER: No Associated Systoms: No Chest Pain, No Nausea/Vomiting, No Shortness of Air, No Weakness Allergies and Home Medications Allergies Coded Allergies: NKANo Known Allergies (Verified Allergy, Unknown, 09/22/06) Home Medications Atenolol 50 Mg Tablet, 1 TAB PO DAILY, (Reported) takes in evening Atorvastatin 20 Mg Tablet, 1 TAB PO DAILY, (Reported) takes hs Citalopram Hydrobromide 20 Mg Tablet, 1 TAB PO DAILY, (Reported) takes HS Glucosamine Hcl 750 Mg Tablet, 750 MG PO DAILY, (Reported) Hydrocodone Bit/Acetaminophen 1 Each Tablet, 1-2 EACH PO Q4H PRN, (Reported) Ibuprofen 800 Mg Tab, 800 MG PO TID PRN, (Reported) take with milk or meals Levothyroxine Sodium 50 Mcg Tablet, 1 TAB PO DAILY, (Reported) takes HS Multivitamins 1 Ea Tablet, 1 TAB PO DAILY, (Reported) takes HS Patient Home Medication List Home Medication List Reviewed: Yes Review of Systems Review of Systems Constitutional: see HPI; No chills, No fever Respiratory: No Symptoms Reported Cardiovascular: No Symptoms Reported Gastrointestinal: No Symptoms Reported Psychiatric/Neurological: Anxiety; Denies Headache Past Cswcwmj-Xmttma-Agwijq Hx Past Med/Social Hx: Reviewed Nursing Past Med/Soc Hx Patient Social History Alcohol Use: Denies Use Number of Drinks Today: FF Alcohol Beverage of Choice: Wine, Vodka Recreational Drug Use: No 2nd Hand Smoke Exposure: No Recent Foreign Travel: No Contact w/Someone Who Travel: No Recent Infectious Disease Expo: No Recent Hopitalizations: No Immunizations Up To Date Tetanus Booster (TDap): More than 5yrs PED Vaccines UTD: Yes Date of Pneumonia Vaccine: Feb 08, 2018 Date of Influenza Vaccine: Feb 09, 2012 Seasonal Allergies Seasonal Allergies: Yes Past Medical History Surgeries: Yes Gallbladder, Hysterectomy, Orthopedic, Vascular Surgery Respiratory: No Cardiac: Yes High Cholesterol, Hypertension Neurological: No Reproductive Disorders: No (UTERINE POLYP REMOVED) Genitourinary: No Gastrointestinal: No Musculoskeletal: Yes Fractures Endocrine: Yes Hypothyroidsim HEENT: No Cancer: No Psychosocial: Yes Depression Integumentary: No Blood Disorders: No Family Medical History Reviewed Nursing Family Hx Cancer, Hypertension, Lung Disease Physical Exam Vital Signs Vital Signs - First Documented 10/15/19 15:39 Temp 37.7 Pulse 73 Resp 10 B/P (MAP) 150/75 (100) Pulse Ox 97 O2 Delivery Room Air Capillary Refill : Less Than 3 Seconds Height, Weight, BMI Height: '" Weight: lbs. oz. [id number]; 27.00 BMI Method: General Appearance: No Apparent Distress, WD/WN Respiratory: Lungs Clear, Normal Breath Sounds Cardiovascular: Regular Rate, Rhythm, No Murmur Neurologic/Psychiatric: Alert, Oriented x3 Skin: Normal Color, Warm/Dry Progress/Results/Core Measures Results/Orders Vital Signs/I&O 10/15/19 15:39 Temp 37.7 Pulse 73 Resp 10 B/P (MAP) 150/75 (100) Pulse Ox 97 O2 Delivery Room Air Blood Pressure Mean: 100 Progress Progress Note : Progress Note Seen and evaluated. Blood pressure has trended down and now is 123/80. We will adjust her medications so she will take amlodipine 5 mg by mouth twice a day. I will give small prescription of clonidine 0.1 mg that she can take if systolic blood pressure remains over 160. She was given my phone number to call if there is any questions or concerns. She is to follow-up with Dr. Knowles as scheduled. I will send a copy of the chart to her. Discharged home with return precautions. Patient verbalize understanding instructions and agreement with plan. Departure Impression Primary Impression: Labile hypertension Disposition: HOME, SELF-CARE Condition: Improved Departure-Patient Inst. Decision time for Depature: 16:17 Referrals: EVA KNOWLES DO (PCP/Family) Primary Care Physician Patient Instructions: High Blood Pressure in Adults Add. Discharge Instructions: All discharge instructions reviewed with patient and/or family. Voiced understanding. Take medications as prescribed. You should take amlodipine 5 mg (one tablet) twice a day and stay on that regimen. If your blood pressure is getting low (below 100 on the systolic or top number) then you may decrease to half tablet. If your blood pressure is greater than 160 mmHg on the top number after taking your blood pressure medicines then you may take one of the clonidine tablets. Do not hesitate to call me if you have questions. Keep follow-up appointment with Dr. Knowles as scheduled. Take other medications as prescribed. Return for chest pain, breathing problems, persistent uncontrolled high blood pressure or other concerns as needed. Scripts Clonidine HCl (Clonidine HCl) 0.1 Mg Tablet 0.1 MG PO Q6H PRN for BLOOD PRESSURE, #15 TAB 0 Refills Take one tablet for sustained systolic blood pressure greater than 160 mmHg. Prov: TERENCE KITCHEN MD 10/15/19 Copy Copies To 1: EVA KNOWLES TIMOTHY D MD Oct 15, 2019 16:19
[2019-10-15] MEDS ORDERED: CLON0.1T PO (16:22)
[2019-10-15 16:25] VITALS: BP 153/99
== END 2019-10-15 16:28 | disposition home or self-care (01) ==
LOC: EDUNIT# 14:55 → ER 14:56
DX: I10 Essential (primary) hypertension (principal); E78.00 Pure hypercholesterolemia, unspecified; E03.9 Hypothyroidism, unspecified; F32.9 Major depressive disorder, single episode, unspecified
CPT/HCPCS: 99283

== ENCOUNTER → 2019-12-08 | Outpatient (CLI) | payer MEDICARE ==
[~2019-12-08] MED LIST changes: +CLON0.1T PO
[2019-12-08 09:29] LABS: CHLORIDE 100 MMOL/L (98-107); POTASSIUM 3.9 MMOL/L (3.6-5.0); SODIUM 139 MMOL/L (135-145)
[2019-12-08 09:30] LABS: CALCIUM 9.3 MG/DL (8.5-10.1)
[2019-12-08 09:31] LABS: GLUCOSE 95 MG/DL (70-105)
[2019-12-08 09:32] LABS: CARBON DIOXIDE 28 MMOL/L (21-32)
[2019-12-08 09:34] LABS: CREATININE SERUM 0.73 MG/DL (0.60-1.30); GFR ESTIMATED > 60
[2019-12-08 09:35] LABS: BUN/CREATININE RATIO 22
--- NOTE | 2019-12-08 11:29 | Diagnostic Imaging Report ---
PROCEDURE: US Thyroid. TECHNIQUE: Multiple real-time grayscale images were obtained of the thyroid in various projections. INDICATION: Thyroid nodules, right neck lump The thyroid ultrasound exam performed on 08/07/2014 noted multiple thyroid nodules including a 1.7 cm nodule in the upper and lower aspects of the right lobe. This appearance is felt to be related to a multinodular goiter. The right lobe of thyroid is enlarged measuring 5.0 x 2.2 x 1.8 cm. On the prior study the right lobe measured only 4.6 x 1.7 x 1.7 cm (normal gland size 4x5 x 2x2 millimeters or less). The two roughly 1.7 cm nodules in the superior and inferior poles of the right lobe seen previously are again evident and do not seem to have changed significantly. The right lobe is otherwise stable. The left lobe of the thyroid has increased in size since the prior exam and now measures 4.1 x 2.0 x 1.7 cm as opposed to 3.7 x 1.5 x 1.9 cm previously. The 1.1 cm nodule in the superior pole seen previously is again evident and no different. On the prior exam there was a 0.5 x 0.6 cm hypoechoic nodule in the inferior pole. On this exam there now appears to be a 2.2 x 1.7 x 1.2 cm area of mixed echogenicity in this region. This finding is predominantly solid with ill defined irregular border and wider than tall. There are no associated calcifications. I would rate this as a T1-RADS 4. The size of this new lesion however is worrisome. I would recommend that an ultrasound-guided biopsy be performed to exclude malignancy. Reportedly the patient has a palpable mass in the right neck. There is no discrete abnormality in this region. This is in the area of the submandibular gland. The submandibular gland where visualized is unremarkable however. The left submandibular gland was not included on this study. If further evaluation is desired, then CT of the neck with contrast would be recommended. IMPRESSION: 1. In the interval since the prior study a roughly 2 cm nodule has developed in the inferior pole of the left lobe of the thyroid. An ultrasound-guided biopsy would be recommended to exclude malignancy. 2. There is no abnormality in the right neck to correspond with the patient's palpable mass. Recommendations as above. These results were discussed with Dr. Gina Knowles. Dictated by: Dictated on workstation # [id number]
== END ==
LOC: RAD 08:45
PROVIDERS: ATTEND Family Medicine
DX: E04.1 Nontoxic single thyroid nodule (principal); I10 Essential (primary) hypertension; Z79.899 Other long term (current) drug therapy
CPT/HCPCS: 36415; 76536; 80048

== ENCOUNTER → 2019-12-14 | Outpatient (CLI) | payer MEDICARE ==
[~2019-12-14] VITALS: Ht 64 cm; Wt 68.0 kg
[~2019-12-14] MED LIST changes: +LIDOCAINE 1% INJ 20 ML 20 ML VIAL INJ ONE; +LIDOCAINE 1% INJ 20 ML 20 ML VIAL ONE
[2019-12-14 12:25] VITALS: BP 131/80
--- NOTE | 2019-12-14 15:52 | Diagnostic Imaging Report ---
INDICATION: Left thyroid nodule. Patient presents for ultrasound-guided fine needle aspiration. DETAILS OF THE PROCEDURE: The patient was brought to the procedure room and placed on the table in the supine position. Ultrasound imaging of the left neck was performed to evaluate for an appropriate entry site. The left neck was then prepped and draped in the usual sterile fashion. A small amount of 1% lidocaine was utilized for local anesthesia. A total of three passes was made into the ill-defined area of hypoechogenicity in the inferior pole of the left lobe of the thyroid utilizing 25-gauge needles and fine-needle aspiration technique. A single pass was made into this region with a Rotex needle and a Rotex biopsy was performed. Hemostasis was obtained using manual compression. The patient tolerated the procedure well and left the Department in stable condition. IMPRESSION: Ultrasound-guided fine-needle aspiration and Rotex biopsy of a left lower pole thyroid nodule. Pathology results are currently pending. Dictated by: Dictated on workstation # [id number]
== END ==
LOC: RAD 11:32
PROVIDERS: ATTEND Family Medicine
DX: E04.1 Nontoxic single thyroid nodule (principal)

== ENCOUNTER → 2020-04-24 | Outpatient (CLI) | payer MEDICARE ==
[~2020-04-24] MED LIST changes: +AMLO-250; -AMLO5TAB9; +CLN.1T PO; -CLON0.1T PO; -LIDOCAINE 1% INJ 20 ML 20 ML VIAL INJ ONE; -LIDOCAINE 1% INJ 20 ML 20 ML VIAL ONE
--- NOTE | 2020-04-25 09:11 | NUR ---
Notified patient of positive COVID test. Also notified Dr Knowles that patient may be candidate for BAM treatment.
== END ==
LOC: LAB 12:20
PROVIDERS: ATTEND Emergency Medicine
DX: U07.1 COVID-19 (principal)
CPT/HCPCS: 87635

== ENCOUNTER 2020-04-27 08:10 | Outpatient (CLI) | payer MEDICARE ==
[~2020-04-27] VITALS: Ht 157 cm; Wt 65.9 kg
[2020-04-27 08:00] VITALS: BP 168/93
[2020-04-27] MEDS ORDERED: BAMLANIVIMAB 700 MG in NS 200 ML IV ONE (08:30)
[2020-04-27] MEDS ORDERED: diphenhydrAMINE 50 MG/ML INJ (BENADRYL) IV PRN (08:30)
[2020-04-27] MEDS ORDERED: EPINEPHrine INJECTION 1 MG/ML AMP IM PRN (08:30)
--- NOTE | 2020-04-27 09:42 | NUR ---
PT COMPLAINS OF FEELING SOB. PT HAS BEEN COUGHING OCCASIONALLY. PULSE OX 99%, PULSE 64, ET BP 152/83.
[2020-04-27 09:50] VITALS: BP 152/83
== END 2020-04-27 10:57 ==
LOC: INFUSION 08:10
PROVIDERS: ATTEND Emergency Medicine
DX: U07.1 COVID-19 (principal)

== ENCOUNTER 2020-06-28 14:41 | Emergency (ER) | payer MEDICARE ==
[~2020-06-28] VITALS: Ht 154 cm; Wt 72.0 kg
[2020-06-28] MEDS ORDERED: NS IV 500 ML 500 ML IV SCH (15:00)
[2020-06-28] MEDS ORDERED: ONDANSETRON 4 MG/2 ML (SDV) Z0FRAN IVP ONE (15:00)
[2020-06-28 15:04] LABS: HEMATOCRIT 32 % (35-52); HEMOGLOBIN 11.3 G/DL (11.5-16.0); MEAN CORPUSCULAR HEMOGLOBIN 30 PG (25-34)
--- NOTE | 2020-06-28 15:04 | ED Chest Pain ---
General Chief Complaint: Cardiac/General Problems Stated Complaint: BACK PAIN; DIAPHORESIS Source: patient Exam Limitations: no limitations History of Present Illness Date Seen by Provider: Jun 28, 2020 Time Seen by Provider: 14:45 Initial Comments 79-year-old female presents by private vehicle to the ER with complaint of "not feeling well". States she was shopping at [employer] and she suddenly felt like she had to have a bowel movement, so she went to the restroom and she did have a bowel movement, then she felt very weak and her legs were weak and she was brought to the ER for evaluation. Past medical history significant for pacemaker placed 2-1/2 weeks ago @ [facility]. States she has not had any significant problem since then, but she has been relatively weak. She denies chest pain, palpitations, rapid or slowing heart rate. She denies fever or chills, cough or shortness of air. Incidentally, she has been off of her losartan for a couple weeks and today restarted it. Allergies and Home Medications Allergies Coded Allergies: SEVEROANo Known Allergies (Verified Allergy, Unknown, 09/22/06) Home Medications Atenolol 50 Mg Tablet, 1 TAB PO DAILY, (Reported) takes in evening Atorvastatin 20 Mg Tablet, 1 TAB PO DAILY, (Reported) takes hs Citalopram Hydrobromide 20 Mg Tablet, 1 TAB PO DAILY, (Reported) takes HS Clonidine HCl 0.1 Mg Tablet, 0.1 MG PO Q6H PRN for BLOOD PRESSURE Take one tablet for sustained systolic blood pressure greater than 160 mmHg. Prescribed by: TERENCE KITCHEN on 10/15/19 1622 Glucosamine Hcl 750 Mg Tablet, 750 MG PO DAILY, (Reported) Hydrocodone Bit/Acetaminophen 1 Each Tablet, 1-2 EACH PO Q4H PRN, (Reported) Ibuprofen 800 Mg Tab, 800 MG PO TID PRN, (Reported) take with milk or meals Levothyroxine Sodium 50 Mcg Tablet, 1 TAB PO DAILY, (Reported) takes HS Multivitamins 1 Ea Tablet, 1 TAB PO DAILY, (Reported) takes HS Patient Home Medication List Home Medication List Reviewed: Yes Review of Systems Review of Systems Constitutional: No chills; diaphoresis; No fever; malaise, weakness Respiratory: Denies Cough, Denies Shortness of Air, Denies Stridor, Denies Wheezing Cardiovascular: Denies Chest Pain, Denies Edema; Lightheadedness; Denies Palpitations, Denies Syncope Gastrointestinal: Denies Abdominal Pain, Denies Constipated, Denies Diarrhea; Nausea; Denies Poor Appetite, Denies Vomiting Psychiatric/Neurological: Denies Headache, Denies Numbness, Denies Paresthesia, Denies Seizure; Weakness Past Mvqvnfn-Pwoxxo-Rnskxn Hx Past Med/Social Hx: Reviewed Nursing Past Med/Soc Hx Patient Social History Alcohol Use: Denies Use Number of Drinks Today: FF Alcohol Beverage of Choice: Wine, Vodka 2nd Hand Smoke Exposure: No Recent Hopitalizations: No Immunizations Up To Date Tetanus Booster (TDap): More than 5yrs PED Vaccines UTD: Yes Date of Pneumonia Vaccine: Feb 08, 2018 Date of Influenza Vaccine: Feb 09, 2012 Seasonal Allergies Seasonal Allergies: Yes Past Medical History Surgeries: Yes (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, VERICOSE VEINS) Gallbladder, Hysterectomy, Orthopedic, Vascular Surgery Respiratory: No Cardiac: Yes High Cholesterol, Hypertension Neurological: No Reproductive Disorders: No (UTERINE POLYP REMOVED) Genitourinary: No Gastrointestinal: No Musculoskeletal: Yes Fractures Endocrine: Yes Hypothyroidsim HEENT: No Cancer: No Psychosocial: Yes Depression Integumentary: No Blood Disorders: No Family Medical History Cancer, Hypertension, Lung Disease Physical Exam Vital Signs Vital Signs - First Documented 06/28/20 15:07 Temp 35.8 Pulse 69 Resp 18 B/P (MAP) 131/70 (90) Pulse Ox 98 O2 Delivery Room Air Capillary Refill : Height, Weight, BMI Height: '" Weight: lbs. oz. 90.980780fm; 166.01 BMI Method: General Appearance: No Apparent Distress, WD/WN Respiratory: Chest Non Tender, Lungs Clear, Normal Breath Sounds, No Accessory Muscle Use, No Respiratory Distress Cardiovascular: Regular Rate, Rhythm, No Edema, No Gallop, No JVD, Normal Peripheral Pulses Gastrointestinal: Normal Bowel Sounds, Non Tender, Soft Extremity: Normal Capillary Refill, Normal Inspection, Non Tender Neurologic/Psychiatric: Alert, Oriented x3, No Motor/Sensory Deficits, Normal Mood/Affect Skin: Normal Color, Warm/Dry Progress/Results/Core Measures Results/Orders Lab Results Laboratory Tests Test 06/28/20 14:55 06/28/20 15:17 Range/Units White Blood Count 9.0 4.3-11.0 10^3/uL Red Blood Count 3.83 L 4.35-5.85 10^6/uL Hemoglobin 11.3 L 11.5-16.0 G/DL Hematocrit 32 L 35-52 % Mean Corpuscular Volume 84 80-99 FL Mean Corpuscular Hemoglobin 30 25-34 PG Mean Corpuscular Hemoglobin Concent 35 32-36 G/DL Red Cell Distribution Width 12.4 10.0-14.5 % Platelet Count 458 H 130-400 10^3/uL Mean Platelet Volume 9.7 7.4-10.4 FL Immature Granulocyte % (Auto) 0 % Neutrophils (%) (Auto) 80 H 42-75 % Lymphocytes (%) (Auto) 11 L 12-44 % Monocytes (%) (Auto) 6 0-12 % Eosinophils (%) (Auto) 2 0-10 % Basophils (%) (Auto) 1 0-10 % Neutrophils # (Auto) 7.2 1.8-7.8 X 10^3 Lymphocytes # (Auto) 1.0 1.0-4.0 X 10^3 Monocytes # (Auto) 0.5 0.0-1.0 X 10^3 Eosinophils # (Auto) 0.2 0.0-0.3 10^3/uL Basophils # (Auto) 0.1 0.0-0.1 10^3/uL Immature Granulocyte # (Auto) 0.0 0.0-0.1 10^3/uL Sodium Level 131 L 135-145 MMOL/L Potassium Level 4.0 3.6-5.0 MMOL/L Chloride Level 96 L 98-107 MMOL/L Carbon Dioxide Level 21 21-32 MMOL/L Anion Gap 14 5-14 MMOL/L Blood Urea Nitrogen 47 H 7-18 MG/DL Creatinine 2.83 H 0.60-1.30 MG/DL Estimat Glomerular Filtration Rate 16 BUN/Creatinine Ratio 17 Glucose Level 140 H 70-105 MG/DL Calcium Level 9.9 8.5-10.1 MG/DL Corrected Calcium 9.7 8.5-10.1 MG/DL Total Bilirubin 0.3 0.1-1.0 MG/DL Aspartate Amino Transf (AST/SGOT) 12 5-34 U/L Alanine Aminotransferase (ALT/SGPT) 10 0-55 U/L Alkaline Phosphatase 101 40-136 U/L Troponin I < 0.30 <0.30 NG/ML Total Protein 7.9 6.4-8.2 GM/DL Albumin 4.3 3.2-4.5 GM/DL Glucometer 118 H 70-110 MG/DL My Orders Orders - MAGDY CUELLAR DO Ed Iv/Invasive Line Start (06/28/20 14:47) Chest 1 View Ap/Pa Only (06/28/20 14:47) Ekg Tracing (06/28/20 14:47) Troponin I Fs (06/28/20 14:47) Cbc With Automated Diff (06/28/20 14:47) Comprehensive Metabolic Panel (06/28/20 14:47) Ns Iv 500 Ml (Sodium Chloride 0.9%) (06/28/20 15:00) Ondansetron Injection (Zofran Injectio (06/28/20 15:00) Medications Given in ED Current Medications Medications Dose Ordered Sig/Ana Lilia Route Start Time Stop Time Status Last Admin Dose Admin Ondansetron HCl 4 mg ONCE ONCE IVP 06/28/20 15:00 06/28/20 15:01 DC 06/28/20 15:01 4 MG Vital Signs/I&O 06/28/20 06/28/20 15:07 16:15 Temp 35.8 35.8 Pulse 69 70 Resp 18 18 B/P (MAP) 131/70 (90) 120/62 Pulse Ox 98 99 O2 Delivery Room Air Room Air Progress Progress Note : Time: 15:11 Progress Note Pacemaker evaluated by our device and sent to [facility] for review. They called back and stated that there has been no incidents or aberrancy that would have contributed to her symptoms. Initial ECG Impression Date: Jun 28, 2020 Initial ECG Impression Time: 14:49 Initial ECG Rate: 67 Initial ECG Intervals: Normal Initial ECG Impression: Normal Comment paced atrial rhythm without ectopy or ischemic change Diagnostic Imaging Diagonstic Imaging: Xray Comments COMPARISON: 06/28/2015. FINDINGS: Single frontal view of the chest demonstrates normal heart size and pulmonary vascularity. New left-sided dual-lead pacemaker is noted. The lungs are well aerated and clear. No large pleural effusion or pneumothorax is seen. The visualized osseous structures show no acute abnormalities. IMPRESSION: 1. No acute cardiopulmonary process. Dictated on workstation # [id number] Dict: 06/28/20 1504 Trans: 06/28/20 1506 [facility] [id number] Interpreted by: ANGEL SHI MD Electronically signed by: Departure Impression Primary Impression: ARF (acute renal failure) Qualified Codes: N17.9 - Acute kidney failure, unspecified Additional Impressions: Vasovagal episode Dehydration Disposition: HOME, SELF-CARE Condition: Stable Transfer Transfer Reason: Exceeds level of care (Cardio and Nephro evaluation likely) Transfer Progress Notes Called Rickey Espino @ 1600.....due to patient recently having a pacemaker placed by Dr Marshall there approx 2-3 wks ago. Also new onset ARF. Previous creatinine of 0.7 in November of [address] Dr[address] Peralta (sp?) accepts for transfer @ 1615 to go by PO w a Responsible driving her. VSS, appears well and feeling somewhat better p 1 liter NS IV. Departure-Patient Inst. Referrals: EVA CARVALHO DO (PCP/Family) Primary Care Physician Patient Instructions: Vasovagal Response (DC) MAGDY CUELLAR DO Jun 28, 2020 15:04
[2020-06-28 15:05] LABS: BASOPHILS % (AUTO) 1 % (0-10); EOSINOPHILS % (AUTO) 2 % (0-10); LYMPHOCYTES % (AUTO) 11 % (12-44); MEAN CORPUSCULAR HGB CONC 35 G/DL (32-36); MEAN CORPUSCULAR VOLUME 84 FL (80-99); MEAN PLATELET VOLUME 9.7 FL (7.4-10.4); MONOCYTES % (AUTO) 6 % (0-12); NEUTROPHILS % (AUTO) 80 % (42-75); PLATELET COUNT 458 10^3/uL (130-400)
[2020-06-28 15:06] LABS: BASOPHILS # (AUTO) 0.1 10^3/uL (0.0-0.1); EOSINOPHILS # (AUTO) 0.2 10^3/uL (0.0-0.3); MONOCYTES # (AUTO) 0.5 X 10^3 (0.0-1.0); NEUTROPHILS # (AUTO) 7.2 X 10^3 (1.8-7.8)
[2020-06-28 15:31] LABS: ALANINE AMINOTRANSFERASE 10 U/L (0-55); ALKALINE PHOSPHATASE 101 U/L (40-136); BILIRUBIN,TOTAL 0.3 MG/DL (0.1-1.0); BUN/CREATININE RATIO 17; CALCIUM 9.9 MG/DL (8.5-10.1); CARBON DIOXIDE 21 MMOL/L (21-32); CHLORIDE 96 MMOL/L (98-107); CREATININE SERUM 2.83 MG/DL (0.60-1.30); GFR ESTIMATED 16; GLUCOSE 140 MG/DL (70-105); SODIUM 131 MMOL/L (135-145); TOTAL PROTEIN 7.9 GM/DL (6.4-8.2)
[2020-06-28 15:32] LABS: ALBUMIN 4.3 GM/DL (3.2-4.5)
[2020-06-28 16:15] VITALS: BP 120/62
== END 2020-06-28 16:15 | disposition short-term general hospital (02) ==
LOC: EDUNIT# 14:41 → ER FS 14:44
DX: N17.9 Acute kidney failure, unspecified (principal); R55 Syncope and collapse; E86.0 Dehydration; E78.00 Pure hypercholesterolemia, unspecified; I10 Essential (primary) hypertension; E03.9 Hypothyroidism, unspecified; F32.9 Major depressive disorder, single episode, unspecified; Z80.9 Family history of malignant neoplasm, unspecified; Z82.49 Family history of ischemic heart disease and other diseases of the circulatory system
CPT/HCPCS: 36415; 71045; 80053; 82962; 84484; 85025; 93005

== ENCOUNTER → 2020-07-30 | Outpatient (CLI) | payer MEDICARE ==
[2020-07-30 10:18] LABS: POTASSIUM 3.6 MMOL/L (3.6-5.0)
[2020-07-30 10:19] LABS: CALCIUM 9.7 MG/DL (8.5-10.1); CREATININE SERUM 1.35 MG/DL (0.60-1.30)
== END ==
LOC: LAB FS 07-10 13:40
PROVIDERS: ATTEND Family Medicine
DX: N17.9 Acute kidney failure, unspecified (principal)
CPT/HCPCS: 36415; 80048

== ENCOUNTER → 2021-01-16 | Outpatient (CLI) | payer MEDICARE ==
[2021-01-16 10:00] LABS: ALBUMIN 4.5 GM/DL (3.2-4.5); BILIRUBIN,TOTAL 0.5 MG/DL (0.1-1.0); CALCIUM 9.6 MG/DL (8.5-10.1); CREATININE SERUM 0.99 MG/DL (0.60-1.30); POTASSIUM 4.2 MMOL/L (3.6-5.0); TOTAL PROTEIN 7.1 GM/DL (6.4-8.2)
[2021-01-16 10:01] LABS: HEMATOCRIT 35 % (35-52); HEMOGLOBIN 11.6 g/dL (11.5-16.0); LYMPHOCYTES % (AUTO) 19 % (12-44); MEAN CORPUSCULAR HEMOGLOBIN 30 pg (25-34); MEAN CORPUSCULAR HGB CONC 33 g/dL (32-36); MEAN CORPUSCULAR VOLUME 91 fL (80-99); MEAN PLATELET VOLUME 10.7 fL (9.0-12.2); NEUTROPHILS % (AUTO) 67 % (42-75); PLATELET COUNT 233 10^3/uL (130-400); WHITE BLOOD COUNT 5.3 10^3/uL (4.3-11.0)
[2021-01-16 10:02] LABS: BASOPHILS # (AUTO) 0.1 10^3/uL (0.0-0.1); BASOPHILS % (AUTO) 1 % (0-10); EOSINOPHILS # (AUTO) 0.3 10^3/uL (0.0-0.3); EOSINOPHILS % (AUTO) 5 % (0-10); MONOCYTES # (AUTO) 0.4 X 10^3 (0.0-1.0); MONOCYTES % (AUTO) 8 % (0-12); NEUTROPHILS # (AUTO) 3.5 X 10^3 (1.8-7.8)
[2021-01-16 12:49] LABS: PROTHROMBIN TIME PATIENT 13.3 SEC (12.2-14.7)
[2021-01-16 15:22] LABS: FREE T4 (FREE THYROXINE) 1.05 NG/DL (0.70-1.48)
== END ==
LOC: LAB FS 01-09 13:17
PROVIDERS: ATTEND Family Medicine
DX: I10 Essential (primary) hypertension (principal); E78.5 Hyperlipidemia, unspecified; E03.9 Hypothyroidism, unspecified; R58 Hemorrhage, not elsewhere classified; R53.83 Other fatigue
CPT/HCPCS: 36415; 80053; 80061; 84439; 84443; 85025; 85610; 85730

== ENCOUNTER → 2021-06-01 | Outpatient (CLI) | payer MEDICARE ==
--- NOTE | 2021-06-01 08:59 | Diagnostic Imaging Report ---
INDICATION: Fall with left leg pain. TIME OF EXAM: 8:48 AM Alignment at the knee and ankle is normal. Tibia and fibula are intact. No fractures are seen. IMPRESSION: No acute bony abnormality is detected. Dictated by: Dictated on workstation # [id number]
== END ==
LOC: RAD 07:55
PROVIDERS: ATTEND Emergency Medicine
DX: M79.605 Pain in left leg (principal); W19.XXXA Unspecified fall, initial encounter
CPT/HCPCS: 73590

== ENCOUNTER 2022-01-21 16:20 | Emergency (ER) | payer MEDICARE ==
[~2022-01-21] VITALS: Ht 157 cm; Wt 72.0 kg
[2022-01-21 16:40] LABS: BASOPHILS # (AUTO) 0.1 10^3/uL (0.0-0.1); BASOPHILS % (AUTO) 1 % (0-10); EOSINOPHILS # (AUTO) 0.1 10^3/uL (0.0-0.3); EOSINOPHILS % (AUTO) 2 % (0-10); HEMATOCRIT 32 % (35-52); HEMOGLOBIN 10.9 g/dL (11.5-16.0); LYMPHOCYTES # (AUTO) 1.3 10^3/uL (1.0-4.0); LYMPHOCYTES % (AUTO) 19 % (12-44); MEAN CORPUSCULAR HEMOGLOBIN 30 pg (25-34); MEAN CORPUSCULAR HGB CONC 34 g/dL (32-36); MEAN CORPUSCULAR VOLUME 86 fL (80-99); MEAN PLATELET VOLUME 10.6 fL (9.0-12.2); MONOCYTES # (AUTO) 0.6 10^3/uL (0.0-1.0); MONOCYTES % (AUTO) 9 % (0-12); NEUTROPHILS # (AUTO) 4.5 10^3/uL (1.8-7.8); NEUTROPHILS % (AUTO) 68 % (42-75); PLATELET COUNT 269 10^3/uL (130-400); WHITE BLOOD COUNT 6.6 10^3/uL (4.3-11.0)
--- NOTE | 2022-01-21 16:41 | ED Fall/Injury ---
General Chief Complaint: Trauma-Non Activation Stated Complaint: FALL Source: patient Exam Limitations: no limitations History of Present Illness Date Seen by Provider: Jan 21, 2022 Time Seen by Provider: 16:23 Initial Comments Patient to ER by private conveyance from home with chief complaint she had a fall over a week ago Labor Day weekend. She hurt her lower back but refused to go for imaging. She has no history of back trauma, surgeries or fractures. She does not have any loss of control of bowel or bladder, numbness weakness saddle anesthesia. 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 She has second fall on Thursday, 4 days ago when she was in her RV in the bathroom against the counter on the right flank. She is having continued pain in her low back and flank as well as a lot of bruising all over her low back and swelling over her lumbar spine. She took a hydrocodone yesterday half of a 10 x 325. She took the other half in the afternoon and was able to actually take a nap and rest. She rates her pain as mild while at rest but 8 out of 10 if she has to get up or move. She is also having some pain in her right knee from the initial fall. She is able to bear weight on it. She has history of ipsilateral trimalleolar fracture of her right ankle with subsequent surgery in [place]. Cardiology is in [place]. She underwent a work-up years ago for syncopal episodes. She denies any syncope now. She is not on blood thinners but she does take aspirin. She is followed by Dr. Knowles for primary care. Allergies and Home Medications Allergies Coded Allergies: Marcio Known Allergies (Verified Allergy, Unknown, 09/22/06) Patient Home Medication List Home Medication List Reviewed: Yes Amlodipine Besylate (Amlodipine Besylate) 5 Mg Tablet, (Reported) Entered as Reported by: CAT VALDIVIA on 10/09/19 0821 Atenolol (Tenormin) 50 Mg Tablet, 1 TAB PO DAILY, (Reported) Entered as Reported by: HARMONY SALVADOR on 09/22/06 1505 Atorvastatin (Lipitor 20MG) 20 Mg Tablet, 1 TAB PO DAILY, (Reported) Entered as Reported by: HARMONY SALVADOR on 09/22/06 1506 Citalopram Hydrobromide (Celexa) 20 Mg Tablet, 1 TAB PO DAILY, (Reported) Entered as Reported by: HARMONY SALVADOR on 09/22/06 1507 Clonidine HCl (Clonidine HCl) 0.1 Mg Tablet, 0.1 MG PO Q6H PRN for BLOOD PRESSURE Prescribed by: TERENCE KITCHEN on 10/15/19 1622 Glucosamine Hcl (Vegetarian Glucosamine) 750 Mg Tablet, 750 MG PO DAILY, (Reported) Entered as Reported by: CAMDEN INGRAM on 05/08/12 1813 Hydrocodone Bit/Acetaminophen (Lortab 5 Mg Tablet) 1 Each Tablet, 1-2 EACH PO Q4H PRN, (Reported) Entered as Reported by: SHANON MOONEY on 05/09/12 1341 Ibuprofen (Motrin) 800 Mg Tab, 800 MG PO TID PRN, (Reported) Entered as Reported by: SHANON MOONEY on 05/09/12 1341 Levothyroxine Sodium (Levoxyl) 50 Mcg Tablet, 1 TAB PO DAILY, (Reported) Entered as Reported by: HARMONY SALVADOR on 09/22/06 1508 Losartan Potassium (Losartan Potassium) 50 Mg Tablet, (Reported) Entered as Reported by: CAT VALDIVIA on 10/09/19 0821 Multivitamins (Vitamins (Multi-Vit)) 1 Ea Tablet, 1 TAB PO DAILY, (Reported) Entered as Reported by: HARMONY SALVADOR on 09/22/06 1508 Simvastatin (Simvastatin) 40 Mg Tablet, (Reported) Entered as Reported by: CAT VALDIVIA on 10/09/19 0821 Review of Systems Review of Systems Constitutional: No chills, No fever Eyes: Denies Blindness, Denies Blurred Vision Ears, Nose, Mouth, Throat: denies ear pain, denies ear discharge Respiratory: No cough, No phlegm Cardiovascular: No chest pain, No edema Gastrointestinal: No abdominal pain, No nausea, No vomiting Genitourinary: No discharge, No dysuria Musculoskeletal: see HPI, back pain, joint pain All Other Systems Reviewed Negative Unless Noted: Yes Past Qlqjdft-Pobuwm-Xztunb Hx Patient Social History Tobacco Use?: No Use of E-Cig and/or Vaping dev: No Substance use?: No Alcohol Use?: No Pt feels they are or have been: No Immunizations Up To Date Tetanus Booster (TDap): More than 5yrs PED Vaccines UTD: Yes First/Initial COVID19 Vaccinat: 2020 Second COVID19 Vaccination Serge: 2020 COVID19 Vaccine News Technical Director: RAZIA Seasonal Allergies Seasonal Allergies: Yes Past Medical History Surgeries: Yes (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, VERICOSE VEINS) Gallbladder, Hysterectomy, Orthopedic, Vascular Surgery Respiratory: No Cardiac: Yes High Cholesterol, Hypertension Neurological: No Reproductive Disorders: No (UTERINE POLYP REMOVED) Genitourinary: No Gastrointestinal: No Musculoskeletal: Yes Fractures Endocrine: Yes Hypothyroidsim HEENT: No Cancer: No Psychosocial: Yes Depression Integumentary: No Blood Disorders: No Family Medical History Cancer, Hypertension, Lung Disease Physical Exam Vital Signs Vital Signs - First Documented 01/21/22 16:20 Temp 36.4 Pulse 86 Resp 18 B/P (MAP) 160/67 (98) Pulse Ox 99 O2 Delivery Room Air Capillary Refill : Height, Weight, BMI Height: '" Weight: lbs. oz. [id number]; 30.00 BMI Method: General Appearance: WD/WN, mild distress HEENT: PERRL/EOMI, pharynx normal Neck: non-tender, full range of motion, supple, normal inspection Cardiovascular: normal peripheral pulses, regular rate, rhythm Respiratory: no respiratory distress, no accessory muscle use Peripheral Pulses: 2+ Dorsalis Pedis (R), 2+ Left Dors-Pedis (L), 2+ Radial Pulses (R), 2+ Radial Pulses (L) Gastrointestinal: normal bowel sounds, non tender, soft, other (Right flank ecchymoses) Back: vertebral tenderness (Midline vertebral tenderness and swelling over L2- L5. No paravertebral muscle spasms or tenderness. Extensive ecchymoses over the right flank and sacrum/coccyx region.) Extremities: non-tender, normal inspection Neurologic/Psychiatric: alert, normal mood/affect, oriented x 3 Marcy Coma Score Best Eye Response: (4) Open Spontaneously Best Verbal Response: (5) Oriented Best Motor Response: (6) Obeys Commands [place] Total: 15 Progress/Results/Core Measures Results/Orders Lab Results Laboratory Tests Test 01/21/22 16:30 01/21/22 18:23 Range/Units White Blood Count 6.6 4.3-11.0 10^3/uL Red Blood Count 3.67 L 3.80-5.11 10^6/uL Hemoglobin 10.9 L 11.5-16.0 g/dL Hematocrit 32 L 35-52 % Mean Corpuscular Volume 86 80-99 fL Mean Corpuscular Hemoglobin 30 25-34 pg Mean Corpuscular Hemoglobin Concent 34 32-36 g/dL Red Cell Distribution Width 13.0 10.0-14.5 % Platelet Count 269 130-400 10^3/uL Mean Platelet Volume 10.6 9.0-12.2 fL Immature Granulocyte % (Auto) 0 % Neutrophils (%) (Auto) 68 42-75 % Lymphocytes (%) (Auto) 19 12-44 % Monocytes (%) (Auto) 9 0-12 % Eosinophils (%) (Auto) 2 0-10 % Basophils (%) (Auto) 1 0-10 % Neutrophils # (Auto) 4.5 1.8-7.8 10^3/uL Lymphocytes # (Auto) 1.3 1.0-4.0 10^3/uL Monocytes # (Auto) 0.6 0.0-1.0 10^3/uL Eosinophils # (Auto) 0.1 0.0-0.3 10^3/uL Basophils # (Auto) 0.1 0.0-0.1 10^3/uL Immature Granulocyte # (Auto) 0.0 0.0-0.1 10^3/uL Sodium Level 139 135-145 MMOL/L Potassium Level 3.6 3.6-5.0 MMOL/L Chloride Level 101 98-107 MMOL/L Carbon Dioxide Level 27 21-32 MMOL/L Anion Gap 11 5-14 MMOL/L Blood Urea Nitrogen 22 H 7-18 MG/DL Creatinine 0.86 0.60-1.30 MG/DL Estimat Glomerular Filtration Rate 68 BUN/Creatinine Ratio 26 Glucose Level 107 H 70-105 MG/DL Calcium Level 9.7 8.5-10.1 MG/DL Urine Color PALE YELLOW Urine Clarity CLEAR Urine pH 7.0 5-9 Urine Specific [place] <=1.005 1.016-1.022 Urine Protein NEGATIVE NEGATIVE Urine Glucose (UA) NEGATIVE NEGATIVE Urine Ketones NEGATIVE NEGATIVE Urine Nitrite NEGATIVE NEGATIVE Urine Bilirubin NEGATIVE NEGATIVE Urine Urobilinogen 0.2 < = 1.0 MG/DL Urine Leukocyte Esterase NEGATIVE NEGATIVE Urine RBC (Auto) NEGATIVE NEGATIVE Urine RBC NONE /HPF Urine WBC NONE /HPF Urine Squamous Epithelial Cells RARE /HPF Urine Crystals NONE /LPF Urine Bacteria NEGATIVE /HPF Urine Casts NONE /LPF Urine Mucus NEGATIVE /LPF Urine Culture Indicated NO My Orders Orders - KAREN FOSTER Cbc With Automated Diff (01/21/22 16:31) Basic Metabolic Panel (01/21/22 16:31) Ua Culture If Indicated (01/21/22 16:31) Ed Iv/Invasive Line Start (01/21/22 16:31) Ns Iv 500 Ml (Sodium Chloride 0.9%) (01/21/22 16:45) Hydrocodone/Apap 5/325 Tablet (Lortab 5 (01/21/22 16:45) Ct Abdomen/Pelvis W (01/21/22 16:31) Ct Cerv/Thoracic/Lumbar Wo (01/21/22 16:31) Knee 3 View Right (01/21/22 16:31) Iohexol Injection (Omnipaque 350 Mg/Ml 1 (01/21/22 17:15) Received Contrast (Hold Metformin- Contr (01/21/22 17:15) Sodium Chloride Flush (Catheter Flush Sy (01/21/22 17:15) Ns (Ivpb) (Sodium Chloride 0.9% Ivpb Bag (01/21/22 17:15) Medications Given in ED Current Medications Medications Dose Ordered Sig/Ana Lilia Route Start Time Stop Time Status Last Admin Dose Admin Acetaminophen/ Hydrocodone Bitart 1 ea ONCE ONCE PO 01/21/22 16:45 01/21/22 16:46 DC 01/21/22 16:44 1 EA Iohexol 100 ml ONCE ONCE IV 01/21/22 17:15 01/21/22 17:16 DC 01/21/22 18:22 80 ML Sodium Chloride 10 ml NEEDED PRN IV 01/21/22 17:15 01/21/22 18:22 10 ML Sodium Chloride 100 ml ONCE ONCE IV 01/21/22 17:15 01/21/22 17:16 DC 01/21/22 18:22 100 ML Sodium Chloride 500 ml @ 0 mls/hr Q0M ONCE IV 01/21/22 16:45 01/21/22 16:46 DC 01/21/22 16:43 1,000 MLS/HR Vital Signs/I&O 01/21/22 01/21/22 16:20 16:38 Temp 36.4 36.4 Pulse 86 86 Resp 18 18 B/P (MAP) 160/67 (98) 160/67 (98) Pulse Ox 99 99 O2 Delivery Room Air Room Air Progress Progress Note : Time: 16:39 Progress Note Hydrocodone for pain and will get a CT of her thoracolumbar spine without IV contrast. Because of the extensive right flank bruising plan to get a urinalysis looking for microscopic hematuria as well as check labs to make sure she has good surrogate kidney function and give her a 500 cc bolus of fluids. Plain film of the right knee. Diagnostic Imaging Diagonstic Imaging: CT Plain Films/CT/US/NM/MRI: other (Thoracolumbar spine) Comments [facility] [place] [place] NAME: MOE DANGELO [facility] REC#: [id number] PT STATUS: REG ER : 1940 PHYSICIAN: KAREN FOSTER MD ADMIT DATE: 01/21/22/ER Signed Date of Exam:01/21/22 CT CERV/THORACIC/LUMBAR WO INDICATION: Pain. TECHNIQUE: Axial imaging through the cervical, thoracic, and lumbar spine was performed without contrast. Sagittal and coronal reformations were also performed. CT CERVICAL: Curvature of the cervical spine is normal. There is minimal anterolisthesis of C4 on C5. Severe degenerative disc disease is identified at C4-C5, C5-C6, C6-C7 and C7-T1 levels with disc space narrowing and marginal spurring. There is multilevel facet arthropathy. There appears to be interruption of the anterior wall of the left C4 transverse process. This was present on CT study from 02/23/2019. No acute fractures are identified. Prevertebral tissues are within normal limits. Odontoid is intact. IMPRESSION: Severe cervical spondylosis. No acute bony abnormality is detected. CT THORACIC SPINE: There is normal thoracic kyphotic curvature. There is right convexity scoliotic curvature. Vertebral body heights are well-maintained. No acute compression fracture is seen. There is severe multilevel degenerative disc disease with significant disc space narrowing and marginal spurring at all levels. Paraspinous tissues are unremarkable. There appears to be some trace pleural fluid on the right versus pleural thickening. IMPRESSION: Severe thoracic spondylosis. No acute bony abnormality is detected. CT LUMBAR SPINE: Curvature of the lumbar spine is normal. There is minimal retrolisthesis of L2 on L3 and L3 on L4. Vertebral body heights are well-maintained. No acute compression fracture is seen. There is severe multilevel degenerative disc disease with significant disc space narrowing at all levels. There is vacuum disc at all levels. No fractures are seen. Paraspinous tissues are unremarkable. IMPRESSION: Severe lumbar spondylosis. No acute bony abnormality is detected. Dictated by: Dictated on workstation # [id number] Dict: 01/21/22 1827 Trans: 01/21/221849 [facility] [id number] Interpreted by: CHANG SAAB MD Electronically signed by: CHANG SAAB MD 01/21/221849 Reviewed: Reviewed by Il Diagonstic Imaging: CT Plain Films/CT/US/NM/MRI: abdomen, pelvis Comments [facility] [place] NAME: MOE DANGELO [facility] REC#: [id number] PT STATUS: REG ER : 1940 PHYSICIAN: KAREN FOSTER MD ADMIT DATE: 01/21/22/ER Draft Date of Exam:01/21/22 CT ABDOMEN/PELVIS W INDICATION: Right flank pain and back pain TECHNIQUE: Multiple contiguous axial images were obtained through the abdomen and pelvis after administration of intravenous contrast. Auto Exposure Controls were utilized during the CT exam to meet ALARA standards for radiation dose reduction. All CT scans use one or more of the following dose optimizing techniques: automated exposure control, MA and/or KvP adjustment based on patient size and exam type or iterative reconstruction. COMPARISON: There is no prior CT of the abdomen of pelvis for comparison. The visualized portions of the lung bases demonstrate some right basilar scarring. There is no consolidation or pleural fluid. There is no free intraperitoneal air. The liver shows a bilobed cyst in the left lobe with benign appearance. There is no liver mass. The patient has had a previous cholecystectomy. The spleen, pancreas, and kidneys appear unremarkable. There is a right adrenal nodule measuring about 2 cm. There is no retroperitoneal mass or adenopathy. There is no ascites or abscess. There is a large amount of stool throughout the colon. There are scattered colonic diverticula. There are mildly prominent fluid-filled loops of small bowel in the left lower quadrant which may represent ileus. IMPRESSION: Incidental left hepatic cyst and right adrenal lesion, which may represent adenoma. Prominent stool throughout the colon with findings compatible with mild ileus. No evidence of abscess. No renal stone or hydronephrosis. Dictated on workstation # [id number] Dict: 01/21/221826 Trans: 01/21/221835 [facility] [id number] Interpreted by: SHANON GONZALES MD Electronically signed by: Reviewed: Reviewed by Me Diagonstic Imaging: Xray Plain Films/CT/US/NM/MRI: knee (Right) Comments [facility] [place] NAME: MOE DANGELO [facility] REC#: [id number] PT STATUS: REG ER : 1940 PHYSICIAN: KAREN FOSTER MD ADMIT DATE: 01/21/22/ER Signed Date of Exam:01/21/22 KNEE 3 VIEW RIGHT INDICATION: Fall with right knee pain. Time of Exam: 6:19 PM 3 views of the right knee were obtained. There is generalized demineralization. There is medial and patellofemoral compartmental degenerative change with joint space narrowing and marginal spurring. There is spurring of the tibial spines. No fracture, dislocation or effusion is identified. IMPRESSION: Degenerative changes. No acute bony abnormality is detected. Dictated by: Dictated on workstation # [id number] Dict: 01/21/221833 Trans: 01/21/22 185 [facility] [id number] Interpreted by: CHANG SAAB MD Electronically signed by: CHANG SAAB MD 01/21/221849 Reviewed: Reviewed by Me Departure Impression Primary Impression: Fall Qualified Codes: W19.XXXA - Unspecified fall, initial encounter Additional Impressions: Contusion Qualified Codes: S30.1XXA - Contusion of abdominal wall, initial encounter Constipation Qualified Codes: K59.00 - Constipation, unspecified Low back pain Qualified Codes: M54.50 - Low back pain, unspecified Disposition: 01 HOME, SELF-CARE Condition: Stable Departure-Patient Inst. Decision time for Depature: 19:26 Referrals: EVA KNOWLES DO (PCP/Family) Primary Care Physician Patient Instructions: Dealing with Constipation from the Drugs You Take, Low Back Pain (DC) Add. Discharge Instructions: Drink plenty of fluids. MiraLAX once or twice a day for the next week to help keep you regular especially while using the hydrocodone. Hydrocodone 5 mg every 6 hours as needed for severe pain limiting you from being functional. You can also use topical creams such as icy hot, Biofreeze, lidocaine patches etc. Heating pads can be helpful for pain. Tylenol 650 mg every 8 hours needed for pain. Follow-up with Dr. Knowles if not seeing some improvement in 1 to 2 weeks. All discharge instructions reviewed with patient and/or family. Voiced understanding. Scripts Lidocaine (Lidocaine 5% Patch) 5 % Adh..patch 1 EACH TP Q12H PRN for back pain MDD 2 for 14 Days, #28 PATCH 0 Refills 2 patches max for 12 hours, then 12 hours patch-free period. Prov: KAREN FOSTER 01/21/22 Hydrocodone/Acetaminophen (Hydrocodone-Acetamin 5-325 mg) 5 Mg-325 Mg Tablet 1 TAB PO Q6H PRN for PAIN-MODERATE (5-7), #12 TAB 0 Refills Prov: KAREN FOSTER 01/21/22 Copy Copies To 1: EVA KNOWLES TITUS J Jan 21, 2022 16:41
[2022-01-21] MEDS ORDERED: HYDROcodone/APAP 5 MG/325 MG (LORTAB) TAB PO ONE (16:45)
[2022-01-21] MEDS ORDERED: NS IV 500 ML 500 ML IV ONE (16:45)
[2022-01-21 17:02] LABS: CALCIUM 9.7 MG/DL (8.5-10.1); CREATININE SERUM 0.86 MG/DL (0.60-1.30); POTASSIUM 3.6 MMOL/L (3.6-5.0)
[2022-01-21] MEDS ORDERED: HOLD METFORMIN - RECEIVED CONTRAST 20 ML VIAL IV SCH (17:15)
[2022-01-21] MEDS ORDERED: NS 100 ML (IVPB) BAG IV ONE (17:15)
[2022-01-21] MEDS ORDERED: IOHEXOL 350 MG/ML 100 ML (OMNIPAQUE 350) VIAL IV ONE (17:15)
[2022-01-21] MEDS ORDERED: CATHETER FLUSH 10 ML SYR IV PRN (17:15)
[2022-01-21 18:29] LABS: BILIRUBIN,URINE NEGATIVE (NEGATIVE); CLARITY,URINE CLEAR; GLUCOSE, URINE (UA) NEGATIVE (NEGATIVE); KETONES,URINE NEGATIVE (NEGATIVE); LEUKOCYTE ESTERASE ,URINE NEGATIVE (NEGATIVE); NITRITE,URINE NEGATIVE (NEGATIVE); PROTEIN,URINE NEGATIVE (NEGATIVE)
[2022-01-21 18:33] LABS: BACTERIA,URINE NEGATIVE /HPF; COLOR,URINE PALE YELLOW; SQUAMOUS EPITHELIAL CELL,UR RARE /HPF
--- NOTE | 2022-01-21 18:36 | Diagnostic Imaging Report ---
INDICATION: Right flank pain and back pain TECHNIQUE: Multiple contiguous axial images were obtained through the abdomen and pelvis after administration of intravenous contrast. Auto Exposure Controls were utilized during the CT exam to meet ALARA standards for radiation dose reduction. All CT scans use one or more of the following dose optimizing techniques: automated exposure control, MA and/or KvP adjustment based on patient size and exam type or iterative reconstruction. COMPARISON: There is no prior CT of the abdomen of pelvis for comparison. The visualized portions of the lung bases demonstrate some right basilar scarring. There is no consolidation or pleural fluid. There is no free intraperitoneal air. The liver shows a bilobed cyst in the left lobe with benign appearance. There is no liver mass. The patient has had a previous cholecystectomy. The spleen, pancreas, and kidneys appear unremarkable. There is a right adrenal nodule measuring about 2 cm. There is no retroperitoneal mass or adenopathy. There is no ascites or abscess. There is a large amount of stool throughout the colon. There are scattered colonic diverticula. There are mildly prominent fluid-filled loops of small bowel in the left lower quadrant which may represent ileus. IMPRESSION: Incidental left hepatic cyst and right adrenal lesion, which may represent adenoma. Prominent stool throughout the colon with findings compatible with mild ileus. No evidence of abscess. No renal stone or hydronephrosis. Dictated by: Dictated on workstation # [id number]
--- NOTE | 2022-01-21 18:39 | Diagnostic Imaging Report ---
INDICATION: Fall with right knee pain. Time of Exam: 6:19 PM 3 views of the right knee were obtained. There is generalized demineralization. There is medial and patellofemoral compartmental degenerative change with joint space narrowing and marginal spurring. There is spurring of the tibial spines. No fracture, dislocation or effusion is identified. IMPRESSION: Degenerative changes. No acute bony abnormality is detected. Dictated by: Dictated on workstation # [id number]
--- NOTE | 2022-01-21 18:41 | Diagnostic Imaging Report ---
INDICATION: Pain. TECHNIQUE: Axial imaging through the cervical, thoracic, and lumbar spine was performed without contrast. Sagittal and coronal reformations were also performed. CT CERVICAL: Curvature of the cervical spine is normal. There is minimal anterolisthesis of C4 on C5. Severe degenerative disc disease is identified at C4-C5, C5-C6, C6-C7 and C7-T1 levels with disc space narrowing and marginal spurring. There is multilevel facet arthropathy. There appears to be interruption of the anterior wall of the left C4 transverse process. This was present on CT study from 02/23/2019. No acute fractures are identified. Prevertebral tissues are within normal limits. Odontoid is intact. IMPRESSION: Severe cervical spondylosis. No acute bony abnormality is detected. CT THORACIC SPINE: There is normal thoracic kyphotic curvature. There is right convexity scoliotic curvature. Vertebral body heights are well-maintained. No acute compression fracture is seen. There is severe multilevel degenerative disc disease with significant disc space narrowing and marginal spurring at all levels. Paraspinous tissues are unremarkable. There appears to be some trace pleural fluid on the right versus pleural thickening. IMPRESSION: Severe thoracic spondylosis. No acute bony abnormality is detected. CT LUMBAR SPINE: Curvature of the lumbar spine is normal. There is minimal retrolisthesis of L2 on L3 and L3 on L4. Vertebral body heights are well-maintained. No acute compression fracture is seen. There is severe multilevel degenerative disc disease with significant disc space narrowing at all levels. There is vacuum disc at all levels. No fractures are seen. Paraspinous tissues are unremarkable. IMPRESSION: Severe lumbar spondylosis. No acute bony abnormality is detected. Dictated by: Dictated on workstation # [id number]
[2022-01-21] MEDS ORDERED: LIDO700A45 TP (19:30)
[2022-01-21] MEDS ORDERED: ACHD5005 PO (19:30)
[2022-01-21 19:36] VITALS: BP 160/67
== END 2022-01-21 19:38 | disposition home or self-care (01) ==
LOC: EDUNIT# 16:20 → ER FS 16:21
DX: S30.1XXA Contusion of abdominal wall, initial encounter (principal); M54.50 Low back pain, unspecified; K59.00 Constipation, unspecified; Z90.49 Acquired absence of other specified parts of digestive tract; W18.30XA Fall on same level, unspecified, initial encounter; Y92.091 Bathroom in other non-institutional residence as the place of occurrence of the external cause
CPT/HCPCS: 36415; 72125; 72128; 72131; 73562; 74177; 80048; 81000; 85025; Q9967

== ENCOUNTER → 2022-01-28 | Outpatient (CLI) | payer MEDICARE ==
[~2022-01-28] MED LIST changes: +LIDO700A45 TP
--- NOTE | 2022-01-28 12:53 | Diagnostic Imaging Report ---
INDICATION: Routine screening. COMPARISON: 11/19/2020 and 04/15/2019. TECHNIQUE: 2D and 3D bilateral screening mammography was performed with CAD. FINDINGS: Both breasts are heterogeneously dense, limiting the sensitivity of mammography. The overall parenchymal pattern is stable. There are occasional benign parenchymal and vascular calcifications bilaterally. No mass or malignant-appearing microcalcifications are seen. A cardiac loop recorder overlies the lower inner left breast soft tissues. The axillae are unremarkable. IMPRESSION: No mammographic features suspicious for malignancy are identified. ACR BI-RADS Category 2: Benign findings. Result letter will be mailed to the patient. Note: At least 10% of breast cancer is not imaged by mammography. Dictated by: Dictated on workstation # [id number]
== END ==
LOC: RAD 10:41
PROVIDERS: ATTEND Family Medicine
DX: Z12.31 Encounter for screening mammogram for malignant neoplasm of breast (principal); Z80.3 Family history of malignant neoplasm of breast
CPT/HCPCS: 77063; 77067

== ENCOUNTER → 2022-09-26 | Outpatient (CLI) | payer MEDICARE ==
[2022-09-26 09:29] LABS: BILIRUBIN,URINE NEGATIVE (NEGATIVE); CLARITY,URINE SL CLOUDY; COLOR,URINE YELLOW; GLUCOSE, URINE (UA) NEGATIVE (NEGATIVE); KETONES,URINE TRACE (NEGATIVE); LEUKOCYTE ESTERASE ,URINE TRACE (NEGATIVE); NITRITE,URINE NEGATIVE (NEGATIVE); PROTEIN,URINE 1+ (NEGATIVE)
[2022-09-26 09:41] LABS: BACTERIA,URINE MODERATE /HPF; HYALINE CASTS, URINE 0-2 /LPF; SQUAMOUS EPITHELIAL CELL,UR 0-2 /HPF
== END ==
LOC: LAB FS 09:04
PROVIDERS: ATTEND Family Medicine
DX: E78.41 Elevated Lipoprotein(a) (principal); R41.0 Disorientation, unspecified; Z87.440 Personal history of urinary (tract) infections
CPT/HCPCS: 81000; 87088

== ENCOUNTER 2023-03-13 13:46 | Emergency (ER) | payer MEDICARE ==
[~2023-03-13] VITALS: Ht 157 cm; Wt 59.4 kg
[2023-03-13 13:57] VITALS: BP 165/75
--- NOTE | 2023-03-13 13:59 | ED Fall/Injury ---
General Chief Complaint: Trauma-Non Activation Stated Complaint: FALL Source: patient, family Exam Limitations: no limitations History of Present Illness Date Seen by Provider: Mar 13, 2023 Time Seen by Provider: 13:58 Initial Comments 82-year-old female with history significant for normal pressure hydrocephalus and shunt placed in January 31 is brought to the ER by her daughter secondary to a fall just prior to arrival. The patient tripped over some gravel and landed on her face. She has some small/superficial abrasions to the upper and lower lip. There was no loss of consciousness. Patient does take a baby aspirin daily. She complains of some neck pain but no head pain. She also had some right hip pain initially. Allergies and Home Medications Allergies Coded Allergies: Marcio Known Allergies (Verified Allergy, Unknown, 09/22/06) Patient Home Medication List Home Medication List Reviewed: Yes Amlodipine Besylate (Amlodipine Besylate) 5 Mg Tablet, (Reported) Entered as Reported by: CAT VALDIVIA on 10/09/19 0821 Atenolol (Tenormin) 50 Mg Tablet, 1 TAB PO DAILY, (Reported) Entered as Reported by: HARMONY SALVADOR on 09/22/06 1505 Atorvastatin (Lipitor 20MG) 20 Mg Tablet, 1 TAB PO DAILY, (Reported) Entered as Reported by: HARMONY SALVADOR on 09/22/06 1506 Citalopram Hydrobromide (Celexa) 20 Mg Tablet, 1 TAB PO DAILY, (Reported) Entered as Reported by: HARMONY SALVADOR on 09/22/06 1507 Clonidine HCl (Clonidine HCl) 0.1 Mg Tablet, 0.1 MG PO Q6H PRN for BLOOD PRESSURE Prescribed by: TERENCE KITCHEN on 10/15/19 1622 Glucosamine Hcl (Vegetarian Glucosamine) 750 Mg Tablet, 750 MG PO DAILY, (Reported) Entered as Reported by: CAMDEN INGRAM on 05/08/12 1813 Hydrocodone Bit/Acetaminophen (Lortab 5 Mg Tablet) 1 Each Tablet, 1-2 EACH PO Q4H PRN, (Reported) Entered as Reported by: SHANON MOONEY on 05/09/12 1341 Hydrocodone/Acetaminophen (Hydrocodone-Acetamin 5-325 mg) 5 Mg-325 Mg Tablet, 1 TAB PO Q6H PRN for PAIN-MODERATE (5-7) Prescribed by: KAREN FOSTER on 01/21/22 193 Ibuprofen (Motrin) 800 Mg Tab, 800 MG PO TID PRN, (Reported) Entered as Reported by: SHANON MOONEY on 05/09/12 1341 Levothyroxine Sodium (Levoxyl) 50 Mcg Tablet, 1 TAB PO DAILY, (Reported) Entered as Reported by: HARMONY SALVADOR on 09/22/06 1508 Lidocaine (Lidocaine 5% Patch) 5 % Adh..patch, 1 EACH TP Q12H PRN for back pain Prescribed by: KAREN FOSTER on 01/21/221929 Losartan Potassium (Losartan Potassium) 50 Mg Tablet, (Reported) Entered as Reported by: CAT VALDIVIA on 10/09/19 0821 Multivitamins (Vitamins (Multi-Vit)) 1 Ea Tablet, 1 TAB PO DAILY, (Reported) Entered as Reported by: HARMONY SALVADOR on 09/22/06 150 Simvastatin (Simvastatin) 40 Mg Tablet, (Reported) Entered as Reported by: CAT VALDIVIA on 10/09/19 0821 Review of Systems Review of Systems Constitutional: see HPI Ears, Nose, Mouth, Throat: no symptoms reported, see HPI Respiratory: cough, orthopnea Cardiovascular: chest pain, edema Gastrointestinal: no symptoms reported, constipation, diarrhea, nausea Genitourinary: decreased output, dysuria, nocturia : Yes : No Musculoskeletal: back pain Skin: change in color Psychiatric/Neurological: No Symptoms Reported, See HPI, Anxiety Past Cxyqvfn-Gbchwp-Ryivci Hx Immunizations Up To Date Tetanus Booster (TDap): More than 5yrs PED Vaccines UTD: Yes First/Initial COVID19 Vaccinat: 2020 Second COVID19 Vaccination Serge: 2020 Seasonal Allergies Seasonal Allergies: Yes Past Medical History Surgeries: Yes (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, VERICOSE VEINS) Gallbladder, Hysterectomy, Orthopedic, Vascular Surgery Respiratory: No Cardiac: Yes High Cholesterol, Hypertension Neurological: No Reproductive Disorders: No (UTERINE POLYP REMOVED) Genitourinary: No Gastrointestinal: No Musculoskeletal: Yes Fractures Endocrine: Yes Hypothyroidsim HEENT: No Cancer: No Psychosocial: Yes Depression Integumentary: No Blood Disorders: No Family Medical History Cancer, Hypertension, Lung Disease Physical Exam Vital Signs Vital Signs - First Documented 03/13/23 13:57 Temp 36.7 Pulse 73 Resp 18 B/P (MAP) 165/75 (105) Pulse Ox 100 O2 Delivery Room Air Capillary Refill : Height, Weight, BMI Height: '" Weight: lbs. oz. 90.659443nq; 29.00 BMI Method: General Appearance: WD/WN, no apparent distress HEENT: PERRL/EOMI, TMs normal, pharynx normal, other (Normal except for some abrasions of the upper and lower lip) Neck: full range of motion, supple, normal inspection, other (Mild diffuse tenderness without step-offs or deformities.) Cardiovascular: normal peripheral pulses, regular rate, rhythm, no edema, no gallop, no JVD, no murmur Respiratory: chest non-tender, lungs clear, normal breath sounds, no respiratory distress, no accessory muscle use Peripheral Pulses: 0 Carotid (R); 2+ Carotid (R); 0 Carotid (L); 2+ Carotid (L); 0 Femoral (R); 2+ Femoral (R); 0 Femoral (L); 2+ Femoral (L); 0 Dorsalis Pedis (R); 2+ Dorsalis Pedis (R), 2+ Left Dors-Pedis (L), 2+ Radial Pulses (R), 2+ Radial Pulses (L) Gastrointestinal: normal bowel sounds, non tender, soft, no organomegaly, no pulsatile mass Rectal: normal exam, normal rectal tone, heme negative stool, deferred, black stool, blood streaked stool, decreased tone Pelvic: normal external exam, normal adnexa, no cerv. motion tender, no masses Back: normal inspection, no CVA tenderness, no vertebral tenderness Extremities: normal range of motion, non-tender, normal inspection, no pedal edema, no calf tenderness, normal capillary refill, pelvis stable Neurologic/Psychiatric: coffee brewer II-XII nml as tested, no motor/sensory deficits, alert, normal mood/affect, oriented x 3 Skin: normal color, warm/dry Lymphatic: no adenopathy, axilla node tender (R) Progress/Results/Core Measures Results/Orders My Orders Orders - DALE HEALY DO Ct Head/Face/Cervical Wo (03/13/23 13:57) Pelvis With Right Hip 2-3 View (03/13/23 13:59) Acetaminophen Tablet (Acetaminophen Ta (03/13/23 15:15) Medications Given in ED Current Medications Medications Dose Ordered Sig/Ana Lilia Route Start Time Stop Time Status Last Admin Dose Admin Acetaminophen 650 mg ONCE ONCE PO 03/13/23 15:15 03/13/23 15:16 DC 03/13/23 15:25 650 MG Vital Signs/I&O 03/13/23 13:57 Temp 36.7 Pulse 73 Resp 18 B/P (MAP) 165/75 (105) Pulse Ox 100 O2 Delivery Room Air Progress Progress Note : Time: 14:01 Progress Note Patient seen for fall. Obtain CT scan of the head face and C-spine and x-ray of the pelvis and hip. Differential includes fracture versus contusion versus abrasion versus intracranial hemorrhage. Condition complicated by normal pressure hydrocephalus with a shunt and 81 mg aspirin therapy. 1525: Around 3:00 radiology called and reported patient's head CT showed bilateral acute on chronic subdural hematomas and the lateral ventricles were decompressed and he was concerned with over shunting. I have reached out to the patient's neurosurgeon at [facility] in [place] and I am currently awaiting a callback. 1550: I spoke with Dr. Stephens, neurosurgeon, at [facility] and he was unable to see the images that we had today. Given the patient's description per radiology interpretation of the images he could not give a definitive answer as to whether or not the patient should be transferred. Given the uncertainty of the CT scan information the patient will be transferred to [facility] emergency department for further evaluation. Accepting physician is Dr. Abraham. Departure Impression Primary Impression: Acute on chronic intracranial subdural hematoma Additional Impressions: Normal pressure hydrocephalus Fall Lip abrasion Disposition: XFER SHT-TRM HOSP Condition: Stable Transfer Transfer Reason: Exceeds level of care Time Spoke to Accepting Phy: 15:54 Transfer Time: 15:55 Transfer Facility: [facility] Method of Transfer: Private Vehicle Departure-Patient Inst. Referrals: EVA CARVALHO DO (PCP) Primary Care Physician DALE HEALY DO Mar 13, 2023 13:59
--- NOTE | 2023-03-13 14:47 | Diagnostic Imaging Report ---
HISTORY: Fall, right hip pain. TECHNIQUE: Frontal view of the pelvis. COMPARISON: None. FINDINGS: No acute fracture is seen in the pelvis or right hip. Alignment appears normal. There is mild degenerative change in the hip joints. There are degenerative changes in the lower lumbar spine. There is tubing in the pelvis. IMPRESSION: No acute osseous abnormality is seen in the right hip. Dictated by: Dictated on workstation # [id number]
--- NOTE | 2023-03-13 14:49 | Diagnostic Imaging Report ---
PROCEDURE: CT head, face, and cervical spine without contrast. TECHNIQUE: Multiple contiguous axial images were obtained through the head, neck, and facial bones without the use of intravenous contrast. Sagittal and coronal reformations through the cervical spine and facial bones were also performed. Auto Exposure Controls were utilized during the CT exam to meet ALARA standards for radiation dose reduction. INDICATION: Fall. Head and neck pain. Facial bruising. History of shunt placement for hydrocephalus. COMPARISON: 01/21/2022 and 02/23/2019. FINDINGS: CT HEAD: Bilateral convexity, acute on chronic subdural hematomas are seen. The right subdural hematoma measures 1.7 cm in thickness and the left measures 0.9 cm in thickness. There is effacement of the underlying cortical sulci bilaterally. No midline shift or herniation. 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 The lateral ventricles are decompressed. No large acute territorial ischemia. The basilar cisterns are clear. The calvarium is intact. CT FACE: No acute facial fractures are visualized. The mandible, zygomatic arches, and pterygoid plates are intact. The bilateral TMJ demonstrate advanced degenerative changes. No nasal bone fractures. The bony nasal septum is slightly deviated to the right without fracture. Retained secretions are seen in the right sphenoid sinus. The mastoid air cells are well pneumatized. Bilateral lens implants are seen. No evidence of orbital rim fracture. CT CERVICAL SPINE: No acute fracture or dislocation is seen in the cervical spine. No focal osseous lesions. Vertebral body heights are well-maintained. The craniocervical junction is well-maintained. Moderate degenerative changes are seen in the cervical spine with disc/osteophyte complexes and uncovertebral arthropathy. Soft tissues of the neck are unremarkable. The included lung apices are clear. IMPRESSION: 1. Bilateral acute on chronic subdural hematomas. There is effacement of the underlying cortical sulci without midline shift or herniation. Given the decompressed lateral ventricles and right parietal approach YARN MERCERIZER OPERATOR HELPER shunt, the findings are likely at least partially due to over shunting and intracranial hypotension. 2. No acute fracture in the cervical spine. 3. No acute facial fracture. 4. Findings were discussed with Dr. Suarez at 2:45 PM on 03/13/[address] Encinas. Dictated by: Dictated on workstation # [id number]
[2023-03-13] MEDS ORDERED: ACETAMINOPHEN 325 MG TABLET PO ONE (15:15)
== END 2023-03-13 16:03 | disposition short-term general hospital (02) ==
LOC: EDUNIT# 13:46 → ER FS 13:47
DX: S06.5X0A Traumatic subdural hemorrhage without loss of consciousness, initial encounter (principal); S00.511A Abrasion of lip, initial encounter; M54.2 Cervicalgia; G91.2 (Idiopathic) normal pressure hydrocephalus; Z98.2 Presence of cerebrospinal fluid drainage device; Z79.82 Long term (current) use of aspirin; W01.0XXA Fall on same level from slipping, tripping and stumbling without subsequent striking against object, initial encounter
CPT/HCPCS: 70450; 70486; 72125; 73502

== ENCOUNTER → 2023-03-19 | Outpatient (CLI) | payer MEDICARE ==
--- NOTE | 2023-03-19 09:21 | Diagnostic Imaging Report ---
PROCEDURE: CT head without contrast. TECHNIQUE: Multiple contiguous axial images were obtained through the brain without the use of intravenous contrast. Auto Exposure Controls were utilized during the CT exam to meet ALARA standards for radiation dose reduction. INDICATION: 82-year-old female with subdural hemorrhage, history of a FOOD AND BEVERAGE INTERN shunt. COMPARISONS: 03/13/2023. FINDINGS: Midline structures are not displaced. Lateral, 3rd, and 4th ventricles are normal in size, shape and anatomic position. Since prior exam, there is a right parietal FOOD AND BEVERAGE INTERN shunt. Bilateral subdural hematomas are again seen with mixed density blood products. Maximum thickness of the left subdural hematoma is approximately 8 mm and maximum thickness on the right is approximately 6 mm. Chavez-white differentiation is maintained. There is no sulcal effacement. Basilar cisterns appear normal. Sinuses, orbits, and mastoid air cells are unremarkable. Bone windows show no calvarial changes. There is calcific atherosclerosis within the carotid siphons and visualized vertebral arteries. IMPRESSION: 1. Essentially stable bilateral subdural hematomas with extensive blood products. If warranted, patient may benefit from bilateral middle meningeal artery embolizations. 2. Interval placement of a right parietal FOOD AND BEVERAGE INTERN shunt. Additional nonemergent findings as described above. Dictated by: Dictated on workstation # [id number]
== END ==
LOC: RAD 07:45
PROVIDERS: ATTEND Specialist
DX: I62.02 Nontraumatic subacute subdural hemorrhage (principal); Z98.2 Presence of cerebrospinal fluid drainage device
CPT/HCPCS: 70450

== ENCOUNTER → 2023-03-30 | Outpatient (CLI) | payer MEDICARE ==
--- NOTE | 2023-03-30 09:00 | Diagnostic Imaging Report ---
CLINICAL INDICATION: Patient with recent subdural bleed and shunt. Followup. EXAM: Axial CT scan of the brain performed without IV contrast with sagittal and coronal reformatted images. Auto Exposure Controls were utilized during the CT exam to meet ALARA standards for radiation dose reduction. COMPARISON: Head CT without contrast dated 03/19/2023. FINDINGS: Stable appearance and position of the ventricular shunt entering the right posterior aspect of the head with tip crossing midline overlying the anterior ventricular region. There is slight increased size of the lateral ventricles including mild prominence involving the temporal horn regions. There is interval decreased size of the bilateral subdural hematomas. The left sided subdural hematoma is predominantly hypodense measuring 6 mm compared to prior study measured at 8 mm. There is also decreased high density involving the left-sided subdural hematoma compared to the prior study. There is also interval decreased size of the right-sided subdural hematoma which is predominantly isodense and hypodense. There is interval development of minimal high density blood involving the posterior upper and inferior aspects of the subdural hematoma which is concerning for interval acute blood. The right-sided subdural hematoma measures 8 mm and is remeasured at 10 mm at the similar location as today's exam for more accurate comparison. There is no brain herniation or midline shift. There is mild chronic small vessel ischemic disease again seen. Stable chronic bony defect involving the medial wall of the left orbit. The remainder of this exam shows no significant interval change compared to the prior study of comparison. IMPRESSION: 1: There is interval development of minimal high density blood within the right-sided subdural hematoma concerning for acute on subacute/chronic blood. The overall size of the right subdural hematoma has decreased in the interim. 2: There is interval decreased size of the subacute/chronic left-sided subdural hematoma. 3: Stable appearance and position of the ventricular shunt. Ventricle sizes have slightly increased in the interim including mild prominence of the temporal horns of the lateral ventricles. Results of this report was discussed with [place] nurse working with Dr. Terry Hewitt, via the telephone on 03/30/2023 at 0846 hours. Dictated by: Dictated on workstation # [id number]
== END ==
LOC: RAD FS 07:54
PROVIDERS: ATTEND Neurological Surgery
DX: G91.2 (Idiopathic) normal pressure hydrocephalus (principal); G93.89 Other specified disorders of brain
CPT/HCPCS: 70450